=== PATIENT | female | born 1985 | race Caucasian/White ===

== ENCOUNTER 2023-05-24 13:46 | Emergency (ER) | payer BC, SELFPAY ==
[2023-05-24 13:57] VITALS: BP 120/84; PULSE 81; RESP 16; TEMP 36.8; O2SAT 99; BMI 28.8
[2023-05-24 14:39] LABS: Appearance Urine Clear (Clear); Bilirubin Urine Negative (Negative); Blood Urine Negative (Negative); Color Urine Yellow (Yellow); Glucose Urine Negative (Negative); Ketones Urine Negative (Negative); Leukocyte Esterase Urine Negative (Negative); Nitrite Urine Negative (Negative); Protein Urine Negative (Negative); Specific Gravity Urine <= 1.005 (1.000-1.030); Urobilinogen Urine 0.2 (0.2-1.0)
[2023-05-24 14:55] LABS: RBC Urine 0-2 (0-2); WBC Urine 0-2 (0-5)
--- NOTE | 2023-05-24 15:20 | ED.NURSE ---
Red rubber cath placed per provider orders to empty bladder. Catheter placed under sterile fashion. 1450 mL of clear, yellow urine drained from bladder. Pt tolerated procedure well. She reports relief of fullness and pain post-procedure. Dr. Miller notified.
--- NOTE | 2023-05-24 15:25 | ED.FEMALEGU ---
HPI - Female Genitourinary General Date Seen: 05/24/23 Chief complaint: Urogenital Problems, Female Stated complaint: 14 weeks , difficulty urinating Time Seen by Provider: 05/24/23 13:49 Source: patient Mode of arrival: ambulatory Limitations: no limitations History of Present Illness HPI Narrative: Patient is a 37-year-old female presenting to the emergency department for urinary tension. She states for the past couple weeks she is having intermittent issues with the urinary retention over the past 2 weeks. She last voided normally yesterday. Today she has only had a few small dribbles has having large amount of suprapubic pain due to this. Had a normal bowel movement today. She states she has been drinking plenty of water. A 2nd and she did not have the symptoms and her previous 1. No other concerns at this time. Denies chest pain, shortness of breath, fevers, chills, dysuria. Related Data Home Medications Medication Instructions Recorded Confirmed No Known Home Medications 05/24/23 05/24/23 Allergies Allergy/AdvReac Type Severity Reaction Status Date / Time No Known Drug Allergies Allergy Verified 05/24/23 14:00 Review of Systems Status of ROS: Reports: 10 or more systems reviewed and unremarkable except as noted in History and below PFSH PFS Social History Smoking Status: Never smoker Do you use any of these nicotine containing products: None Second hand tobacco smoke exposure: No How often do you have a drink containing alcohol: never How often do you have six or more drinks on one occasion: Never AUDIT-C Alcohol total score: 0 Non-prescribed substance use: denies use service: No Exam Narrative: Exam Narrative: Const: Well-nourished, Well-developed, in mild distress Eyes: PERRL, no conjunctival injection, and symmetrical lids HENT: Atraumatic external nose and ears. Moist mucous membranes. GI: Normal suprapubic tenderness. Nondistended, No rebound or guarding. MSK:Extremities w/o deformity, Normal Active ROM Skin: Warm, Dry. No rashes or lesions. Neuro: Normal Muscle tone, No focal neurological deficits. Psych: Awake, Alert, & Oriented x3. Appropriate mood and affect. Const: Vital Signs, click to edit/add: Vital Signs - 24 hr 11/10/23 13:57 Temperature 98.3 F Pulse Rate [Pulse Oximeter] 81 Respiratory Rate 16 Blood Pressure [Ri ght Upper Arm] 120/84 Pulse Oximetry 99 Oxygen Delivery Me thod Room Air Course Vital Signs Vital signs: Initial Vital Signs Temperature 98.3 F 05/24/23 13:57 Temperature Source Temporal Artery Scan 05/24/23 13:57 Pulse Rate 81 05/24/23 13:57 Pulse Rhythm Regular 05/24/23 13:57 Pulse Strength 3+ Normal 05/24/23 13:57 Respiratory Rate 16 05/24/23 13:57 Blood Pressure 120/84 05/24/23 13:57 Blood Pressure Mean 96 05/24/23 13:57 Blood Pressure Position Semi-Fowlers 05/24/23 13:57 Pulse Oximetry 99 05/24/23 13:57 Oxygen Delivery Method Room Air 05/24/23 13:57 Vital Signs Temperature 98.3 F 05/24/23 13:57 Pulse Rate 81 05/24/23 13:57 Respiratory Rate 16 05/24/23 13:57 Blood Pressure 120/84 05/24/23 13:57 Pulse Oximetry 99 05/24/23 13:57 Oxygen Delivery Method Room Air 05/24/23 13:57 Temperature 98.3 F 05/24/23 13:57 Pulse Rate 81 05/24/23 13:57 Respiratory Rate 16 05/24/23 13:57 Blood Pressure 120/84 05/24/23 13:57 Pulse Oximetry 99 05/24/23 13:57 Oxygen Delivery Method Room Air 05/24/23 13:57 MDM - Female Genitourinary MDM Narrative Medical decision making narrative: Patient is a 37-year-old female presenting for urinary retention. Has never been issues with this before. She is quite tender to the suprapubic region. We did bladder scan and came back at 275 but this does not seem accurate similar presentation. To that we will do a straight cath. We did get out 1450 mL of fluid. I spoke to OB on-call provider Dr. Rizvi, and she recommends placing a Bergman to have removed on Saturday by her primary care provider. She states that the patient continues to be unable to urinate after that she needs a pelvic exam to post back her anteverted uterus. Did not recommend any imaging at this time. I spoke to the patient about this. She states she understands and is agreeable. She does note she has mostly going to a conference on Saturday until Saturday is unsure if she will be go to the full conference . Lab Data Labs: Lab Results 05/24/23 Range/Units 14:01 Urine Color Yellow (Yellow) Urine Appearance Clear (Clear) Urine pH 6.0 (5.0-8.5) Ur Specific [place] <= 1.005 (1.000-1.030) Urine Protein Negative (Negative) Urine Glucose (UA) Negative (Negative) Urine Ketones Negative (Negative) Urine Blood Negative (Negative) Urine Nitrite Negative (Negative) Urine Bilirubin Negative (Negative) Urine Urobilinogen 0.2 (0.2-1.0) Ur Leukocyte Esterase Negative (Negative) Urine RBC 0-2 (0-2) Urine WBC 0-2 (0-5) Ur Squamous Epith Cells None (None-Few) Urine Bacteria None (None) Discharge Plan Discharge Clinical Impression: Acute urinary retention Patient Disposition: Home, Self-Care Condition: Improved Instructions: Bergman Catheter Placement and Care (ED), Acute Urinary Retention in Women (ED) Additional Instructions: Due to your urinary tension OB recommended Bergman placement. They recommended having the Bergman removed on Saturday by her primary care provider. If after is removed continued to be unable to urinate you will need a pelvic exam to have your anteverted uterus moved. If your primary cannot do this OB says they are able to do it Prescriptions: No Action No Known Home Medications Follow Up/Referrals: Aziza Sol, DO [Primary Care Provider] - Stand Alone Forms: [employer] Info Instructions
== END 2023-05-24 16:01 | disposition home or self-care (01) ==
PROVIDERS: Emergency Provider Student in an Organized Health Care Education/Training Program; PCP Family Medicine
DX: R33.9 Retention of urine, unspecified (principal)
CPT/HCPCS: 51702; 51798; 81001; 99283

== ENCOUNTER 2023-11-04 22:19 | Inpatient (IN) | payer BC, SELFPAY ==
--- OUTSIDE RECORDS SUMMARY | 2023-11-04 21:19 | XMS_ITS | Referral Summary ---
Author Name Unknown Organization [facility] Address [address] [place] [id number] Care Team Providers Care Line Haul Truck Driver Name Role Phone Ebenezer Aziza Primary Care Provider [phone] Allergies No known active allergies Medications Medication Sig Dispensed Refills Start Date End Date Status Prenat w/o F-FI-Lblktrv-FA-DHA (PNV-DHA PO) Active diphenhydrAMINE (BENADRYL) 25 MG capsule Take 25 mg by mouth daily Active acetaminophen (TYLENOL) 500 MG tablet Take 1,000 mg by mouth every 6 hours as needed for mild pain Active Active Problems Problem Noted Date Diagnosed Date Spontaneous vaginal delivery 09/16/2019 Indication for care in labor or delivery 020 Labor and delivery, indication for care 09/07/19 20 Family history of colon cancer 03/12/2019 Family history of cystic fibrosis 02/05/2019 Last Assessment & Plan: 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 Innatal: Negative 04/2017 annual exam nl pap FLU: 04/13/19 DO NOT tell gender 1 Hr GCT/Hgb: Passed 117, 11.2 Last Assessment & Plan: is Ganga Wallace Immunizations Name Administration Dates Next Due Flu, Unspecified 06/14/2010 HPV Quadrivalent 06/14/2010 Influenza (IIV3) PF 06/14/2010 Influenza Vaccine >6 months,quad, PF 04/13/2019, 07/17/2018 Influenza, Whole Virus 04/25/2017 TDAP Vaccine (Adacel) 06/22/2019 TDAP Vaccine (Boostrix) 06/14/2010 Social History Tobacco Use Types Packs/Day Years Used Date Smoking Tobacco: Never Smokeless Tobacco: Never Tobacco Cessation:Counseling Given: No Alcohol Use Standard Drinks/Week Comments Not Currently 0 (1 standard drink = 0.6 oz pur e alcohol) social PHQ-2 Answer Date Recorded PHQ-2 Score 1 11/06/2019 [place] Depression Scale Answer Date Recorded [place] Depression Score 3 09/17/2019 Last EPDS Self Harm Result Not on file 09/16 Adolescent Education Answer Date Record ed Getting School Help Needed Not on file 04/05 Sex and Gender Information Value Date Recorded Sex Assigned at Not on file Gender Identity Not on file Sexual Orientation Not on file Last Filed Vital Signs Vital Sign Reading Time Taken Comments Blood Pressure 110/70 07/02/2021 10:54 AM ACUPUNCTURE PHYSICIAN Pulse 70 07/02/2021 10:54 AM ACUPUNCTURE PHYSICIAN Temperature 37.4 ??C (99.3 ??F) 07/02/2021 10:[address] Respiratory Rate 16 07/02/2021 10:54 AM ACUPUNCTURE PHYSICIAN Oxygen Saturation 97% 07/02/2021 10:54 AM ACUPUNCTURE PHYSICIAN Inhaled Oxygen Concentration - - Weight 90.8 kg (200 lb 1.6 oz) 07/02/2021 10:54 AM ACUPUNCTURE PHYSICIAN Height 175.3 cm (5' 9) 12/26/2020 7:44 AM CDT Body Mass Index 29.55 12/26/2020 7:44 AM CDT Plan of Treatment Not on file Procedures Procedure Name Priority Date/Time Associated Diagnosis Comments COLONOSCOPY Routine 12/26/2020 8:06 AM CDT HIV ANTIGEN ANTIBODY COMBO Routine 02/05/2019 9:25 AM CDT Encounter for supervision of normal first in first trimester HPV HIGH RISK TYPES DNA CERVICAL Routine 04/29/2017 10:04 AM CDT Encounter for gynecological examination without abnormal finding PAP IMAGED THIN LAYER SCREEN Routine 04/29/2017 9:46 AM CDT Encounter for gynecological examination without abnormal finding from Last 3 Months or Most Recently Relevant to Health Maintenance Results * COLONOSCOPY (12/26/2020 8:06 AM CDT) [facility] Endoscopy Department Patient Name: Cindy Esparza ? Procedure Date: 12/26/2020 8:06 AM ? Date of : 1985 ?Admit Type: Outpatient Age: 35 ? Room: 2 Note Status: Finalized ?Attending MD: Jemima Fisher MD Total Sedation Time: ?Instrument Name: 411 [id number] Colonoscope Procedure: ?Colonoscopy Indications: ?Screening for colon cancer: Family history of ?colorectal cancer in distant relative(s) 60 or ?older, Colon cancer screening in patient at ?increased risk: Family history of 1st-degree ?relative with colon polyps Providers: ?Jemima Fisher MD, Mariam Arizmendi RN Referring : ? Aziza Sol [facility]: ?Fentanyl 150 micrograms IV, Midazolam 4 mg IV Complications: ?No immediate complications. Estimated blood loss: ?None. Procedure: ?Pre-Anesthesia Assessment: ?- Prior to the procedure, a History and Physical ?was performed, and patient medications and ?allergies were reviewed. The patient is competent. ?The risks and benefits of the procedure and the ?sedation options and risks were discussed with the ?patient. All questions were answered and informed ?consent was obtained. Patient identification and ?proposed procedure were verified by the physician ?in the procedure room. Mental Status Examination: ?alert and oriented. Airway Examination: normal ?oropharyngeal airway and neck mobility. Respiratory ?Examination: clear to auscultation. CV Examination: ?normal. ASA Grade Assessment: I - A normal, healthy ?patient. After reviewing the risks and benefits, ?the patient was deemed in satisfactory condition to ?undergo the procedure. The anesthesia plan was to ?use moderate sedation / analgesia (conscious ?sedation). Immediately prior to administration of ?medications, the patient was re-assessed for ?adequacy to receive sedatives. The heart rate, ?respiratory rate, oxygen saturations, blood ?pressure, adequacy of pulmonary ventilation, and ?response to care were monitored throughout the ?procedure. The physical status of the patient was ?re-assessed after the procedure. ?After obtaining informed consent, the colonoscope ?was passed under direct vision. Throughout the ?procedure, the patient's blood pressure, pulse, and ?oxygen saturations were monitored continuously. The ?Colonoscope was introduced through the anus and ?advanced to the cecum, identified by appendiceal ?orifice and ileocecal valve. The terminal ileum, ?the ileocecal valve and the appendiceal orifice ?were photographed. The entire colon was well ?visualized. The colonoscopy was performed with ?ease. The patient tolerated the procedure well. The ?quality of the bowel preparation was excellent. ? Findings: ? The perianal and digital rectal examinations were normal. ? The entire examined colon appeared normal. ? Impression: ? - The entire examined colon is normal. ?- No specimens collected. Recommendation: ? - Discharge patient to home (ambulatory). ?- Repeat colonoscopy in 10 years for screening ?purposes. ? Procedure Code(s): ? --- Professional --- ? 45204, Colonoscopy, flexible; diagnostic, including collection of ? specimen(s) by brushing or washing, when performed (separate procedure) Diagnosis Code(s): ? --- Professional --- ? Z12.11, Encounter for screening for malignant neoplasm of colon ? Z80.0, Family history of malignant neoplasm of digestive organs ? Z83.71, Family history of colonic polyps CPT copyright 2019 [employer]. All rights reserved. The codes documented in this report are preliminary and upon copy director review may be revised to meet current compliance requirements. Jemima Fisher MD 12/26/2020 8:39:32 AM I was physically present for the entire viewing portion of the exam. Jemima Fisher MD Number of Addenda: 0 Note Initiated On: 12/26/2020 8:06 AM MRN: ?[id number] Procedure Date: ? 12/26/2020 8:06:53 AM Scope Withdrawal Time: 0 hours 8 minutes 21 seconds Total Procedure Duration: 0 hours 16 minutes 27 seconds Estimated Blood Loss: ? Scope In: 8:18:57 AM Scope Out: 8:35:24 AM RADIOLOGY RESULTS 12/26/2020 8:06 AM CDT Aziza Sol PROCEDURES RADIOLOGY RESULTS * HIV Antigen Antibody Combo (02/05/2019 9:25 AM CDT) HIV Antigen Antibody Combo Nonreactive NR^Nonrea ctive 02/06/2019 9:52 AM CDT [facility] Comment:HIV-1 p24 Ag & HIV-1 /HIV-2 Ab Not Detected Blood specimen (specimen) 02/05/2019 9:25 AM CDT 02/05/2019 9:26 AM CDT Marie Navarro MD LAB - BLOO D ORDERABLES [facility] [address] [place] [address] * HPV High Risk Types DNA Cervical (04/29/2017 10:04 AM CDT) HPV 16 DNA Negative NEG^Nega tive 05/06/2017 3:33 PM CDT [facility] HPV 18 DNA Negative NEG^Nega tive 05/06/2017 3:33 PM CDT [facility] Other HR HPV Negative NEG^Nega tive 05/06/2017 3:33 PM CDT [facility] Final Diagnosis This patient's sample is negative for HPV DNA. 05/06/2017 3:33 PM CDT [facility] Comment: (Note) METHODOLOGY: ??The Rocio woody 4800 system uses automated extraction, simultaneous amplification of HPV (L1 region) and beta-globin, ?? followed by ??real time detection of fluorescent labeled HPV and beta globin using specific oligonucleotide probes . The test specifically identifies types HPV 16 DNA and HPV 18 DNA while concurrently detecting the rest of the high risk types (31, 33, 35, 39, 45, 51, 52, 56, 58, 59, 66 or 68). COMMENTS: ??This test is not intended for use as a screening device for women under age 30 with normal cervical cytology. ??Results should be correlated with cytologic and histologic findings. Close clinical followup is recommended. This test was developed and its performance characteristics determined by the [facility], [facility]. It has not been cleared or approved by the FDA. The laboratory is regulated under CLIA as qualified to perform high-complexity testing. This test is used for clinical purposes. It should not be regarded as investigational or for research. Specimen Description Cervical Cells 05/03/2017 9:10 AM CDT [facility] Comment:[id number] Cervical Cells 04/29/2017 10 :04 AM CDT 04/29/2017 10:06 AM CDT Marie Navarro MD LAB - BLOO D ORDERABLES [facility] [address] [place] [address] * Pap imaged thin layer screen with HPV - recommended age 30 - 65 (04/29/2017 9:46 AM CDT) PAP FILOMENA Acuña Report Patient Name: CINDY ESPARZA MR#: [id number] Specimen #: [id number] Collected: 04/29/2017 Received: 04/29/2017 Reported: 05/02/2017 08:42 Ordering Phy(s): MARIE NAVARRO For improved result formatting, select 'View Enhanced Report Format' under Linked Documents section. SPECIMEN/STAIN PROCESS: Pap imaged thin layer prep screening (Surepath, FocalPoint with guided screening) ? Pap-Cyto x 1, HPV ordered x 1 SOURCE: Cervical, endocervical Pap imaged thin layer prep screening (Surepath, FocalPoint with guided screening) SPECIMEN ADEQUACY: Satisfactory for evaluation. -Transformation zone component absent. CYTOLOGIC INTERPRETATION: Negative for intraepithelial lesion or malignancy Electronically signed out by: ROBERT Bowen ??(ASCP) Processed and screened at [facility] CLINICAL HISTORY: Papanicolaou Test Limitations: ??Cervical cytology is a screening test with limited sensitivity; regular screening is critical for cancer prevention; Pap tests are primarily effective for the diagnosis/preventi on of squamous cell carcinoma, not adenocarcinomas or other cancers. TESTING LAB LOCATION: [address] ??[id number] COLLECTION SITE: Client: ??[facility] Location: [facility] (S) COPATH Cytologic material (specimen) 04/29/2017 9:46 AM CDT 04/29/2017 2:38 PM CDT Marie Navarro MD LAB - OPTI ME CLINICAL SPECIMEN COPATH from Last 3 Months or Most Recently Relevant to Health Maintenance Care Teams Line Haul Truck Driver Relationship Specialty Start Date End Date Aziza Sol [address] [place] [address] PCP - General 10/20/20
--- OUTSIDE RECORDS SUMMARY | 2023-11-04 21:19 | XMS_ITS | Clinical Summary ---
Author Name Unknown Organization [facility] Address [address] [place] [address] Care Team Providers Care Letterset Press Set Up Operator Name Role Phone Ebenezer Aziza Primary Care Provider [phone] Allergies No known active allergies Medications Medication Sig Dispensed Refills Start Date End Date Status Prenat w/o L-VI-Ykjkmfd-FA-DHA (PNV-DHA PO) Active diphenhydrAMINE (BENADRYL) 25 MG [...] ) in primigravida 02/05/2019 11/06/2019 Overview: FOB: Ganga-cystic fibrosis carrier [ ] Colonoscopy 2/2eye exam. [...] Vaccine (Adacel) 06/22/2019 TDAP Vaccine (Boostrix) 06/14/2010 Family History Medical History Relation Comments Colon Cancer Maternal Grandmother Liver Cancer Maternal Grandmother Skin Cancer Maternal Grandmother Lived until her 90s Breast Cancer Mother Precancerous les ion of the breast Relation Status Comments Father Alive Maternal Grandmother Mother Alive Social History Tobacco Use Types Packs/Day Years Used Date Smoking Tobacco: Never Smokeless Tobacco: Never Tobacco Cessation:Counseling Given: No Alcohol Use Standard Drinks/Week Comments Not Currently 0 (1 standard drink = 0.6 oz pur e alcohol) social PHQ-2 Answer Date Recorded PHQ-2 Score 1 11/06/2019 [place] Depression Scale Answer Date Recorded [place] Depression Score 3 09/17/2019 Last EPDS Self [...] Comments Blood Pressure 110/70 07/02/2021 10:54 AM TIP PRINTER Pulse 70 07/02/2021 10:54 AM TIP PRINTER Temperature 37.4 ??C (99.3 ??F) 07/02/2021 10:[address] Respiratory Rate 16 07/02/2021 10:54 AM TIP PRINTER Oxygen Saturation 97% 07/02/2021 10:54 AM TIP PRINTER Inhaled Oxygen Concentration - - Weight 90.8 kg (200 lb 1.6 oz) 07/02/2021 10:54 AM TIP PRINTER Height 175.3 cm (5' 9) 12/26/2020 7:44 AM CDT Body Mass Index 29.55 12/26/2020 7:44 AM CDT Plan of Treatment Health Maintenance Due Date Last Done Comments ADVANCE CARE PLANNING 1985 ANNUAL REVIEW OF HM ORDERS 1985 CT COLONOGRAPHY 1985 FIT 1985 FLEX SIG 1985 GLUCOSE 1985 sDNA (Cologuard) 1985 HEPATITIS C SCREENING 12/23/2003 HEPATITIS B IMMUNIZATION (1 of 3 - 19+ 3-dose series) 2004 HPV IMMUNIZATION (2 - 3-dose series) 07/12/2010 06/14/2010 HPV TEST 04/29/2020 04/29/2017, 04/14, 06/17/2014 PAP 04/29/2020 04/29/2017, 06/17/2014 YEARLY PREVENTIVE VISIT 11/09/2021 11/10/19 21, 11/09/2020, 04/29/2017 COVID-19 Vaccine ( season) 2023 05/17/2021, 11/10/2020, 10/20/2020 INFLUENZA VACCINE (#1) 2023 , 04/13/2019, 07/17/2018, Additional history exists PHQ-2 (once per calendar year) 2023 11/06/2019, 11/06/2019, 02/05/2019, Additional history exists DTAP/TDAP/TD IMMUNIZATION (3 - Td or Tdap) 06/22/2029 06/22/2019, 06/14/2010 COLONOSCOPY 12/26/2030 12/26/2020, 12/26/2020 COLORECTAL CANCER SCREENING 12/26/2030 HIV SCREENING Completed 02/05/2019 IPV IMMUNIZATION Aged Out No longer e ligible based on patient's age to complete this topic MENINGITIS IMMUNIZATION Aged Out No l onger eligible based on patient's age to complete this topic Pneumococcal Vaccine: Pediatrics (0 to 5 Years) and At-Risk Patients (6 to 64 Years) Aged Out No longer eligible based on patient's age to complete this topic RSV MONOCLONAL ANTIBODY Aged Out No l onger eligible based on patient's age to complete this topic Procedures Procedure Name Priority Date/Time Associated Diagnosis [...] Results * COLONOSCOPY (12/26/2020 8:06 AM CDT) [facility] COLONOSCOPY [facility] Endoscopy Department Patient Name: Cindy Esparza ? [...] Arizmendi RN Referring : ? Aziza Sol Medicines: ?Fentanyl 150 micrograms IV, Midazolam 4 mg [...] Procedure Code(s): ? --- Professional --- ? 00632, Colonoscopy, flexible; diagnostic, including collection of ? specimen(s) by brushing or washing, when performed (separate procedure) Diagnosis Code(s): ? --- Professional --- ? Z12.11, Encounter for screening for malignant neoplasm of colon ? Z80.0, Family history of malignant neoplasm of digestive organs ? Z83.71, Family history of colonic polyps CPT copyright 2019 [employer]. All rights reserved. The codes documented in this report are preliminary and upon small wind energy installer review may be revised to meet current compliance requirements. Jemima Fisher MD 12/26/2020 8:39:32 AM I was physically present for the entire viewing portion of the exam. Jemima Fisher MD Number of Addenda: 0 Note Initiated On: 12/26/2020 8:06 AM MRN: ?[id number] Procedure Date: ? 12/26/2020 8:06:53 AM Scope [...] Nonreactive NR^Nonrea ctive 02/06/2019 9:52 AM CDT [facility] Comment:HIV-1 p24 Ag & HIV-1 /HIV-2 Ab Not Detected Blood specimen (specimen) 02/05/2019 9:25 AM CDT 02/05/2019 9:26 AM CDT Marie Navarro MD LAB - BLOO D ORDERABLES [facility] [address] [place] [address] * HPV High Risk Types DNA Cervical (04/29/2017 10:04 AM CDT) HPV 16 DNA Negative NEG^Nega tive 05/06/2017 3:33 PM CDT [facility] HPV 18 DNA Negative NEG^Nega tive 05/06/2017 3:33 PM CDT [facility] Other HR HPV Negative NEG^Nega tive 05/06/2017 3:33 PM CDT [facility] Final Diagnosis This patient's sample is negative for HPV DNA. 05/06/2017 3:33 PM CDT [facility] Comment: (Note) METHODOLOGY: ??The Rocio [address]y [address] [...] and its performance characteristics determined by the [facility], Molecular Diagnostics Laboratory. It has not been cleared or approved by the FDA. The laboratory is regulated under CLIA as qualified to perform high-complexity testing. This test is used for clinical purposes. It should not be regarded as investigational or for research. Specimen Description Cervical Cells 05/03/2017 9:10 AM CDT [facility] Comment:[id number] Cervical Cells 04/29/2017 10 :04 AM CDT 04/29/2017 10:06 AM CDT Marie Navarro MD LAB - BLOO D ORDERABLES [facility] [address] [place] [address] * Pap imaged thin layer screen with HPV - recommended age 30 - 65 (04/29/2017 9:46 AM CDT) PAP FILOMENA Acuña Report Patient Name: CINDY ESPARZA MR#: [id number] Specimen #: [id number] Collected: 04/29/2017 Received: 04/29/2017 Reported: 05/02/2017 08:42 [...] ROBERT Bowen ??(ASCP) Processed and screened at [facility] CLINICAL HISTORY: Papanicolaou Test Limitations: ??Cervical cytology is a screening test with limited sensitivity; regular screening is critical for cancer prevention; Pap tests are primarily effective for the diagnosis/preventi on of squamous cell carcinoma, not adenocarcinomas or other cancers. TESTING LAB LOCATION: [address] [place], [place] ??[address] COLLECTION SITE: Client: ??[facility] Location: [facility] (S) COPATH Cytologic material (specimen) 04/29/2017 9:46 AM CDT 04/29/2017 2:38 PM CDT Marie Navarro MD LAB - OPTI ME CLINICAL SPECIMEN COPATH from Last 3 Months or Most Recently Relevant to Health Maintenance Care Teams Letterset Press Set Up Operator Relationship Specialty Start Date End Date Aziza Sol [address] [place] [address] PCP - General 10/20/20
--- OUTSIDE RECORDS SUMMARY | 2023-11-04 21:20 | XMS_ITS | Encounter Summary ---
Author Name Unknown Organization [facility] Address [address] [place] [address] Care Team Providers Care Cell Pourer Name Role Phone No Ref-Primary, Physician Primary Care Provider June Navarro MD Unavailable + Aziza Sol Primary Care Provider [phone] Encounter Details Date Type Department Care Team (Late st Contact Info) Description 08/11/2019 [facility] [place] [facility] [address] [address] Ange Horowitz, RN Social History Tobacco Use Types Packs/Day Years Used Date Smoking Tobacco: Never Smokeless Tobacco: Never Alcohol Use Standard Drinks/Week Comments Not Currently 0 (1 standard drink = 0.6 oz pur e alcohol) Not while Comments Yes Sex and Gender Information Value Date Recorded Sex Assigned at Not on file Gender Identity Not on file Sexual Orientation Not on file documented as of this encounter Plan of Treatment Not on file documented as of this encounter Visit Diagnoses Not on filedocumented in this encounter Additional Health Concerns Infection Onset Date Last Indicated Resolved Time Rule Out COVID-19 07/02/2021 07/02/2021 07/02/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
--- OUTSIDE RECORDS SUMMARY | 2023-11-04 21:20 | XMS_ITS | Encounter Summary ---
Author Name Unknown Organization [facility] Address [address] [place] [address] Care Team Providers Care Home Manager Name Role Phone No Ref-Primary, Physician Primary Care Provider June Navarro MD Unavailable + Aziza Sol Primary Care Provider [phone] Reason for Visit * Reason Onset Date Comments Forms 11/25/2019 Encounter Details Date Type Department Care Team (Late st Contact Info) Description 11/25/2019 [facility] Medical Advice [facility] [address] [place] [address] June Navarro MD [address] [facility] [address] [place], [place] [id number] Forms Social History Tobacco Use Types Packs/Day Years Used Date Smoking Tobacco: Never Smokeless Tobacco: Never Alcohol Use Standard Drinks/Week Comments Not Currently 0 (1 standard drink = 0.6 oz pur e alcohol) Not while PHQ-2 Answer Date Recorded PHQ-2 Score 1 11/06/2019 [place] Depression Scale Answer Date Recorded [place] Depression Score 3 09/17/2019 Last EPDS Self Harm Result Not on file 09/16 Sex and Gender Information Value Date Recorded Sex Assigned at Not on file Gender Identity Not on file Sexual Orientation Not on file documented as of this encounter Miscellaneous Notes * Telephone Encounter - Kortney Levy RN - 11/25/2019 1:43 PM CDT Type of Paperwork received: Fitness for Duty Status & Certification Form Date Rcvd: 11/25/2019 Needs RAFI Rcvd From (Company name): [facility] Provider: Dr. 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
--- OUTSIDE RECORDS SUMMARY | 2023-11-04 21:20 | XMS_ITS | Encounter Summary ---
Author Name Unknown Organization [facility] Address [address] [place] [address] Care Team Providers Care Chief Minister Name Role Phone No Ref-Primary, Physician Primary Care Provider June Navarro MD Unavailable + Aziza Sol Primary Care Provider [phone] Reason for Visit * Reason Onset Date Comments MyChart Communication 11/05/2019 Encounter Details Date Type Department Care Team (Latest Contact Info) Description 11/05/2019 My[facility] Medical Advice [facility] [address] [id number] Yvonne Arango CMA MyChart Communication Social History Tobacco Use Types Packs/Day Years Used Date Smoking Tobacco: Never Smokeless Tobacco: Never Alcohol Use Standard Drinks/Week Comments Not Currently 0 (1 standard drink = 0.6 oz pur e alcohol) Not while PHQ-2 Answer Date Recorded PHQ-2 Score 1 11/06/2019 Trail Depression Scale Answer Date Recorded Trail Depression Score 3 09/17/2019 Last EPDS Self [...] Out COVID-19 07/02/2021 07/02/2021 07/02/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
--- OUTSIDE RECORDS SUMMARY | 2023-11-04 21:20 | XMS_ITS | Encounter Summary ---
Author Name Unknown Organization [facility] Address [address] [place] [address] Care Team Providers Care Harnessmaker Name Role Phone June Navarro MD Unavailable + Aziza Sol Primary Care Provider [phone] Encounter Details Date Type Department Care Team (Late st Contact Info) Description [facility] [address] [place] [id number] Social History Tobacco Use Types Packs/Day Years Used Date Smoking Tobacco: Never Smokeless Tobacco: Never Alcohol Use Standard Drinks/Week Comments Not Currently 0 (1 standard drink = 0.6 oz pur e alcohol) Not while PHQ-2 Answer Date Recorded PHQ-2 Score 1 11/06/2019 [place] Depression Scale Answer Date Recorded [place] Depression Score 3 09/17/2019 Last EPDS Self [...] Out COVID-19 07/02/2021 07/02/2021 07/02/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
--- OUTSIDE RECORDS SUMMARY | 2023-11-04 21:20 | XMS_ITS | Encounter Summary ---
Author Name Unknown Organization [facility] Address [address] [place] [address] Care Team Providers Care Soaker Hides Name Role Phone June Navarro MD Unavailable + Aziza Sol Primary Care Provider Encounter Details Date Type Department Care Team (Late st Contact Info) Description [facility] [address] [facility] [address] [facility] [address] [place] [address] Social History Tobacco Use Types Packs/Day Years Used Date Smoking Tobacco: Never Smokeless Tobacco: Never Alcohol Use Standard Drinks/Week Comments Not Currently 0 (1 standard drink = 0.6 oz pur e alcohol) Not while PHQ-2 Answer Date Recorded PHQ-2 Score 1 11/06/2019 [place] Depression Scale Answer Date Recorded [place] Depression Score 3 09/17/2019 Last EPDS Self [...] Out COVID-19 07/02/2021 07/02/2021 07/02/2021 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
--- OUTSIDE RECORDS SUMMARY | 2023-11-04 21:20 | XMS_ITS | Clinical Summary ---
Author Name Unknown Organization [facility] Address [place], [place] [address] Care Team Providers Care Porcelain Slusher Name Role Phone Aziza Sol DO Primary Care Provider [phone] Allergies No known active allergies Medications Medication Sig Dispensed Refills Start Date End Date Status 21/iron fu/folic acid ( COMPLETE ORAL) Take by mouth. Active ferrous sulfate 325 mg delayed release tabletIndications:Ane alondra during in second trimester 1 oral every other day 90 Tablet 3 08/29/2023 Active sucralfate (CARAFATE) 1 gram tabletIndications:Gas troesophageal reflux in Take 1 Tablet (1 g) by mouth four times daily before meals and at bedtime. 120 Tablet 10/24/2023 Active Active Problems Problem Noted Date Diagnosed Date Family history of cystic fibrosis 07/02/2023 AMA (advanced maternal age) multigravida 35+, second trimester 07/02/2023 [facility] Supervision of high risk in second trimester 06/25/2023 Overview: Cindy Amparo : 1985 MPP ULTRASOUND/TESTING PATIENT MPP CONSULT ON Support person name: ULTRASOUND TYPE: L2 REASON FOR VISIT: AMA ( 37yo @ del) NEXT VISIT ALERTS: Final JR by LMP LMP Date: Patient's last menstrual period was 02/19/2023 (exact date). JR:11/26/23 Early US: Date: 04/08/23 GA: 6w6d JR: 11/26/23 PrePregnancy Weight: 202 Height: 5'8 BMI: 30 PLANS & FUTURE APPOINTMENTS: ULTRASOUND/GROWTH PLAN: - Through: - Growth: Next TESTING PLAN: - Testing: Through DELIVERY PLAN: - Scheduled delivery: - Preferred delivery location: PRIMARY DIAGNOSIS: 37 y.o. Estimated Date of Delivery: 11/26/23 MATERNAL AMA (37 @ del) BMI >30 2020 Term PREVIOUS ULTRASOUNDS: 07/02/23 19w0d 04/08/23 6w6d dating US (PCP) ECHO: REFERRING PHYSICIAN/PHONE/LAST UPDATE: Aziza Sol DO, Primary MD approves scheduling of recommended ultrasounds/testing: Yes SPECIALISTS/CONSULTS: Include: Specialty MD Clinic Name Phone# [place] and ADDED TO PATIENT CARE TEAM N/A GENETICS: NIPT: AFP: First screen (NT/seq/integ): if positive add .FIRSTABNORMAL Quad screen (Tetra/Triple screen): if positive add .QUADABNORMAL Amniocentesis/CVS: IVF with PGD: Carrier screening: Declines/Not Done CARE COORDINATION: PERTINENT LABS: Labs reviewed? Yes Normal? Yes Blood type: O Rh Positive Antibody screen: Negative Non-[facility] labs need to be entered in [employer]? No PERTINENT MEDS: PROCEDURES: IF FGR <10% or EFW <2000 grams: Add FGRPCOM PLAN OF CARE: Original and updated POC 04/02/2023 Overview: JR: JR at 11/25/22 by LMP c/with 6wk US Estimated Date of Delivery: 11/26/23 Patient's last menstrual period was 02/19/2023 (exact date). First delivery, fast, pushed < 30min. CALL EBENEZER on arrival +GBS was very painful with first . Makes her uncertain about this GBS- 28 wk labs: GLUCOSE,GESTATIONAL Date Value Ref Range Status 08/29/2023 106 70 - 139 mg/dL Final HEMOGLOBIN Date Value Ref Range Status 08/29/2023 11.4 (L) 12.0 - 16.0 g/dL Final TREPONEMA PALLIDUM Date Value Ref Range Status 08/29/2023 Non-Reactive Non-Reactive Final Last Tdap- 08/29/23 Last Flu vaccine- 04/02/23 OB Labs: ABORH Date Value Ref Range Status 04/02/2023 O Rh Positive Final ANTIBODY SCREEN Date Value Ref Range Status 04/02/2023 Negative Negative Final HEMOGLOBIN Date Value Ref Range Status 04/02/2023 13.3 12.0 - 16.0 g/dL Final PLATELET COUNT Date Value Ref Range Status 04/02/2023 282 140 - 440 thou/cu mm Final TREPONEMA PALLIDUM Date Value Ref Range Status 04/02/2023 Non-Reactive Non-Reactive Final RUBELLA IGG ANTIBODY Date Value Ref Range Status 04/02/2023 1.56 >=1.00 Index Final INTERPRETATION Date Value Ref Range Status 04/02/2023 Positive Final Comment: Presence of detectable IgG antibodies. A positive result generally indicates exposure to the virus or previous vaccination, but is not an indication of active infection or stage of disease. HBSAG Date Value Ref Range Status 04/02/2023 Nonreactive Nonreactive Final HEPATITIS C ANTIBODY Date Value Ref Range Status 04/02/2023 Non-Reactive Non-Reactive Final Comment: Please note, per www.CDC.gov: If a patient is known to be at high risk of HCV infection, or is symptomatic, and the physician's suspicion of HCV infection is high, HCV RNA testing is often employed and is of diagnostic value, even after an initial negative anti-HCV test result. HCV Ab Date Value Ref Range Status 11/08/2022 Non Reactive Non Reactive Final HCV Neg Interp Date Value Ref Range Status 11/08/2022 Comment Final Comment: Not infected with HCV unless early or acute infection is suspected (which may be delayed in an immunocompromised individual), or other evidence exists to indicate HCV infection. HIV Scr 4th Gen Date Value Ref Range Status 11/08/2022 Non Reactive Non Reactive Final Comment: HIV Negative HIV-1/HIV-2 antibodies and HIV-1 p24 antigen were NOT detected. There is no laboratory evidence of HIV infection. CHLAMYDIA PROBE Date Value Ref Range Status 04/02/2023 Negative Final 06/14/2010 Negative Final N GONORRHOEAE PROBE Date Value Ref Range Status 04/02/2023 Negative Final 06/14/2010 Negative Final No Known Allergies OB History Para Term AB Living 2 1 1 0 0 1 SAB IAB Ectopic Multiple Live Births 0 0 0 0 1 # Outcome Date GA Lbr Babatunde/2nd Weight Sex Delivery Anes PTL Lv 2 Current 1 Term 03/04/20 M Vag WESLEY Name: Memo Past Medical History: . Date Migraines No Significant Past Medical History Varicella without mention of complication 1987 Past Surgical History: . Laterality Date [place] UNLISTED PROCEDURE VESTIBULE MOUTH [employer] age WISDOM TEETH EXTRACTION 2004 #2 Problems (from 04/02/23 to present) No problems associated with this episode. Beverly Kelley RN ....04/02/2023 1:37 PM Pap smear for cervical cancer screening 12/14/19 Overview: 10/2022 NIL/HPV negative. Plan: Pap/HPV due 10/2027 Estimated Date of Delivery Comme nts Yes 11/26/2023 Based on last me nstrual period of 02/19/2023 (Exact Date) Encounters Date Type Department Care Team Description 11/01/2023 10:30 AM CDT Ancillary Procedure [facility] [address] [facility] [place] [address] Arrived 10/31/2023 10:00 AM CDT OB Encounter [facility] [address] [facility] [place] [address] Aziza Sol DO Care (36 wks 2 days) 10/31/2023 Travel 10/24/2023 8:45 AM CDT OB Encounter [facility] [address] [facility] [address] Aziza Sol DO Care (35 wks 2 day) 10/24/2023 Travel 10/07/2023 10:25 AM CDT OB Encounter [facility] [address] [facility] [place] [address] Aziza Sol DO Care (32 wks 6 days) 10/07/2023 Travel 09/23/2023 1:05 PM CDT Office Visit [facility] [address] [place] [address] Aziza Sol DO Cough (5 days getting worse) 09/23/2023 Travel 09/12/2023 8:45 AM BLACK LEATHER BUFFER OB Encounter [facility] [address] [place] [address] Aziza Sol DO Care (29 wks 2 days) 09/12/2023 Travel 08/29/2023 9:10 AM BLACK LEATHER BUFFER OB Encounter [facility] [address] [place] [address] Aziza Sol DO Care (27 wks 2 days) 08/29/2023 8:20 AM BLACK LEATHER BUFFER Orders Only [facility] [address] [place] [address] Lab, [facility] 08/29/2023 Orders Only [facility] [address] [place] [address] [address] Aziza Sol DO <No scans attached> 08/29/2023 Travel from Last 3 Months Immunizations Name Administration Dates Next Due COVID-19 vaccine ([employer] 30mcg/0.3mL) PF, MDV 05/17/2021,11/10/2020,10/20/2020 Human Papilloma Virus Vaccine 06/14/2010 Influenza, IIV3 (Age >=3 years) 06/14/2010 Influenza, IIV4 04/02/2023,04/26/2021,06/30/2020 Influenza,CCIIV4 PRESERV FREE 04/23/2022 Tdap 08/29/2023,06/22/2019,06/14/2010 Family History Medical History Relation Name Comments Good Health Father Cancer Maternal Grandmother Liver Cancer-colon Maternal Grandmother Cancer-breast Mother Lumpectomy for precancerous cells from breast Good Health Mother Relation Name Status Comments Father Maternal Grandmother Mother Social History Tobacco Use Types Packs/Day Years Used Date Smoking Tobacco: Never Smokeless Tobacco: Never Tobacco Cessation:Counseling Given: Yes Alcohol Use Standard Drinks/Week Comments Not Currently 0 (1 standard drink = 0.6 oz pur e alcohol) PHQ-2 Answer Date Recorded PHQ-2 TOTAL SCORE 1 11/08/2022 Social Connections Answer Date Recorded Frequency of Communication with Friends and Fami ly 0 04/02/2023 Alcohol Use Answer Date Recorded How often do you have a drink containing alcohol ? 4 11/08/2022 How many drinks containing a lcohol do you have on a typical day when you are drinking? 0 11/08/2022 How often do you have five or more drinks on one occasion? 1 11/08/2022 Financial Resource Strain Answer Date R ecorded Difficulty of Paying Living Expenses 3 04/02/2023 Difficulty of Paying Living Expenses Not on file 04/02/2023 Food Insecurity Answer Date Recorded Worried About Running Out of Food in the Last Ye ar 1 04/02/2023 Transportation Needs Answer Date Record ed Lack of Transportation (Medical) 1 04/02/2023 Housing Stability Answer Date Recorded Unable to Pay for Housing in the Last Year 1 04/02/2023 Estimated Date of Delivery Comme nts Yes 11/26/2023 Based on last me nstrual period of 02/19/2023 (Exact Date) Sex and Gender Information Value Date Recorded Sex Assigned at Not on file Gender Identity Not on file Sexual Orientation Not on file Travel History Travel Start Travel End [place] 10/10/2023 10/14/2023 Obstetrics History Para Term AB IAB SAB Ectopic Multiple Livin g Live Births 2 1 1 0 0 0 0 0 0 1 1 Date Outcome GA Total Labor Labor/2nd/3rd Weight Sex Delivery Anes PTL Wesley A1 A5 Name Cl in 09/15 Term 3.18 kg (7 lb) M Vag Fatmata ng Sawye r Comments:Pushed <30min per pt Current Summary Episode Dates Number of Fetuses Estimated Date of Delivery 04/02/2023 - Present (11/04/2023) 1 11/26/2023 (set by Lupe Patricio on 04/10/2023 based on Last Menstrual Period on 02/19/2023 (Exact Date)) Dating Summary Based On JR GA Diff Last Menstrual Period on 02/19/2023 (Exact Date) 11/26/2023 Working Ultrasound on 04/08/2023 11/26/2023 Same GA:6w6d Alternate JR Entry 11/26/2023 Same Vitals Pregravid Weight Height TWG (As of 11/04/2023) Pregrav id BMI 88.5 kg (195 lb) 1.753 m (5' 9) 3.63 kg (8 lb) 28.78 Date GA Fund Present FHR Mvmt BP Weight Edema Alb Glu Ket Dil/ Eff/Sta 3 19w0d Inpatient data not displayed here. See encounter summary. Notes Progress Notes - OB Encounte r - 10/31/2023 - GA:36w2d 10/31/2023 - 36w2d - Aziza Sol DO Patient is here at 36 2/7 weeks for routine visit with her Mc. No concerns. +FM No abdominal pain/contractions/vaginal bleeding. Little headache last night, resolved on own. No headache now. No vision changes. AMA: again reviewed options and pros/cons testing and option induction 39+ weeks. She has US tomorrow. Declines testing. Kick counts reviewed. Is interested in induction and this was scheduled for SatNovember 19 at 6am GBS today Typical remaining course reviewed. Warning signs/labor signs reviewed. Followup in 1weeks, sooner if needed Progress Notes - OB Encounte r - 10/24/2023 - GA:35w2d 10/24/2023 - 35w2d - Aziza Sol DO Patient feeling well at 35 2/7. No concerns. Has ?'s. Decreased appetite--certain foods not sound good. Can get reflux. Taking tums. Did not gain much weight with first she says. Gained < 5pounds. Having intermittent discharge. Not watery. Can be white or green--not everyday. No odor. No itching. Amniosure negative today. DUNG pending Has noticed pubic symphysis diastasis discomfort. Discussed. No abdominal pain/contractions/vaginal bleeding. No headaches or vision changes. Typical remaining course reviewed. Discussed AMA and MPP guidelines vs UTD guidelines regarding testing/induction. Risks vs benefits reviewed. See patient instructions. Warning signs/labor signs reviewed. Followup in 1week with GBS, sooner if needed Patient Instructions Due to your age (35-39) there are some increased risks of complications towards the end of . Most women in your age group go on to have healthy pregnancies but there are some increased risks. The risk significantly increase at age 40 and above. Different organizations give different guidelines for your age group. The big perinatology group in the [facility] does not recommend any testing in the third trimester in your age group. UpToDate which give physicians medical recommendations, recommends ultrasound at 36wks to assess growth and fluid. They also recommend twice weekly testing starting at 36wks. This involves either baby milly placed on monitor in clinic for 20ish mins OR BPP US which looks at 4 factors that assess baby's health. These are both considered adequate and what we do may depend on scheduling if you decide to pursue testing. We also reviewed option induction at 39 weeks. Progress Notes - OB Encounte r - 10/07/2023 - GA:32w6d 10/07/2023 - 32w6d - Aziza Sol DO Patient feeling well 32 6/7. Left ear with cerumen occlusion. Patient flying this week and can feel. Will have CA irrigate. +FM. No abdominal pain/contractions/vaginal bleeding. No headaches or vision changes. Typical remaining course reviewed. Warning signs/labor signs reviewed. Followup in 2weeks, sooner if needed Progress Notes - OB Encounte r - 09/12/2023 - GA:29w2d 09/12/2023 - w2d - Aziza Sol DO Patient here for routine at 29 2/7. Has had cold since last visit, COVID-19 tested negative. Getting better. No concerns. +FM Mood 'better' No abdominal pain/contractions/vaginal bleeding. No headaches or vision changes. Typical remaining course reviewed. Warning signs/labor signs reviewed. Kick counts reviewed Followup in 2weeks, sooner if needed K LEATHER BUFFER Progress Notes - OB Encounte r - 08/29/2023 - GA:27w2d 08/29/2023 - 27w2d - Aziza Sol DO Patient feeling well at 27 2/7wks. No concerns. Doing GTT today. Blood type confirmed positive TdaP today +FM, kick counts reviewed Mentions moods up and down. After last saw therapist and she thought had situational obsessive-compulsive disorder, anxiety. 'ocd was more spiraling thing with the unrest' at that time in world. Not having that now. More irritability. wonders about depression in her since Barney. barney was difficult. Painful latching. Breastfed to breast 4months then exclusively pumped. Not sure about this time because last time so painful. Discussed options for mood. Therapy +/- medications +/- nonmedication treatments. Patient has started vitamin D. She wants to think about options and let me know. We did review risks vs benefits of SSRI's in . No abdominal pain/contractions/vaginal bleeding. Occasional headache. 1/2 dose tylenol makes go away. No vision changes. Typical remaining course reviewed. Warning signs/labor signs reviewed. Followup in 2weeks, sooner if needed K LEATHER BUFFER Progress Notes - OB Encounte r - 08/01/2023 - GA:23w2d 08/01/2023 - 23w2d - Aziza Sol DO Patient feeling well at 23 2/7wks. Feels tired. +FM. No abdominal pain/contractions/vaginal bleeding. No headaches or vision changes. Typical remaining course reviewed. Warning signs/labor signs reviewed. Followup in 4weeks with GTT/labs, sooner if needed K LEATHER BUFFER Progress Notes - OB Encounte r - 07/03/2023 - GA:19w1d 07/03/2023 - w - Aziza Sol DO Patient feeling well AT 19w1d. Yesterday had feeling not emptying bladder--no pain. With history urinary retention, had UA and pre/postvoid US and were both negative. Had level 2US yesterday as well for AMA. 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 Patient thinks she was tested in past and was not a carrier. Per chart, patient tested in 2019 and was not a carrier for CYSTIC FIBROSIS gene. No abdominal pain/contractions/vaginal bleeding. No headaches or vision changes. Typical remaining course reviewed. Warning signs/labor signs reviewed. Followup in 4weeks, sooner if needed K LEATHER BUFFER Progress Notes - OB Encounte r - 06/05/2023 - GA:15w1d 06/05/2023 - 15w1d - Aziza Sol DO Patient here for routine visit at 15wks. Had urinary retention--see last note. Catheter was removed and she has been voiding normally since. No nausea now. movement: maybe No abdominal pain/contractions/vaginal bleeding. No headaches or vision changes. Typical remaining course reviewed. Warning signs/labor signs reviewed. Level 2 anatomy US scheduled already Followup in 4weeks, sooner if needed K LEATHER BUFFER Progress Notes - OB Encounte r - 05/27/2023 - GA:13w6d 05/27/2023 - 13w6d - Aziza Sol DO S: Here for ER follow up. Was in ER 05/24/23 In ER had bladder emptied with straight cath. 1450 urine was removed. Then catehter placed. That then fell out at home and so had to return and get another catheter Saturday. Over weekend felt uncomfortable along urethra area so did not do much. The suprapubic 'bladder going to explode pain' resolved with catheter placement. Over weekend was 'just catheter itself painful'. Drinking lots of water. Prior to ER visit had 2 weeks or hesitancy with just dribbles and would take forever. At times would urinate okay. Then this past Saturday drinking lots of fluid and not able to void. Suprapubic pain was like 'really have to pee.' Has not been constipated. Having regular bowel movement's. Can be firm. Took colace once. She thought her mychart at hospital said she had influenza but when showing me it was old test result from 2021. She did not get nasal swab at ER this year O: see vitals Gen: pleasant female, no acute distress Abdomen: Nttp. FHT 150's A/P: at 13 6/7 weeks gestation with urinary retention in ER requiring catheter. Catheter removed today. Discussed potential causes and plan for follow up in 4 hours. All ?'s answered. Patient returned 4 hours later and had postvoid US with 4cc. This is reassuring. She will keep her apt for next week and reach out sooner if recurrent symptoms or concerns. K LEATHER BUFFER Progress Notes - OB Encounte r - 05/08/2023 - GA:11w1d 05/08/2023 - 11w - Aziza Sol DO Here for routine visit at 11wks. Was having baseline nausea but that has improved. Only vomited once. No concerns. Would like janina and CYSTIC FIBROSIS screening. Mc is carrier. Patient had CYSTIC FIBROSIS carrier testing and was negative. Offered SMA testing as well, she declined for now. No abdominal pain/contractions/vaginal bleeding. Unable to doppler FHT's but using handheld US we visualized fetus with good FHT's Typical remaining course reviewed. Warning signs/labor signs reviewed. Followup in 4weeks, sooner if needed Progress Notes - OB Encounte r - 04/10/2023 - GA:7w1d 04/10/2023 - 7w1d - Aziza Sol DO FIRST OB VISIT HPI: Cindy Christensen is a 37 y.o. female at 7w1d with lundberg intrauterine here today for a initial OB exam. She is here with self. Ganga is . Estimated due date is Estimated Date of Delivery: 11/26/23 based on LMP c/with US Nausea/Vomiting: Nausea, not vomit. Fatigue: yes Bleeding: no Taking vitamins: yes Options of sequential screen, cell-free DNA testing, amniocentesis were discussed. Patient is interested in pursuing testing. AMA: yes Previous : no MENSTRUAL HISTORY LMP:Patient's last menstrual period was 02/19/23, exact . 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 Last Pap smear October 2022 No history of STIs Patient says with first delivery had 'slow leaking' and found to have srom. Went from no ctxs to severe pain she says and got epidural, slept couple hours and was 9cm. 2 hours later had vaginal delivery. Pushed about 30min. Has hard time . Was in pandemic. Thinks in retrospect had depression. OB History Para Term AB Living 2 1 1 0 0 1 SAB IAB Ectopic Multiple Live Births 0 0 0 0 1 # Outcome Date GA Lbr Babatunde/2nd Weight Sex Delivery Anes PTL Lv 2 Current 1 Term 09/16/19 3.18 kg (7 lb) M Vag WESLEY Comments: Pushed <30min per pt Past Medical History: . Date Migraines No Significant Past Medical History Varicella without mention of complication 1987 No history MRSA or resistant infections Past Surgical History: . Laterality Date [place] UNLISTED PROCEDURE VESTIBULE MOUTH [employer] age WISDOM TEETH EXTRACTION 2004 Family History Problem Relation Age of Onset Cancer-colon Maternal Grandmother Cancer Maternal Grandmother Liver Good Health Mother Cancer-breast Mother Lumpectomy for precancerous cells from breast Good Health Father Social History Tobacco Use Smoking status: Never Smokeless tobacco: Never Substance Use Topics Alcohol use: Not Currently No current outpatient medications on file. No current facility-administered medications for this visit. Medications have been reviewed by me and are current to the best of my knowledge and ability. ALLERGIES Patient has no known allergies. MENTAL HEALTH HISTORY History of psychiatric diagnosis: None at time but in retrospect ? depression Current mental health provider: not applicable Currently taking any psychiatric medications? Not Applicable REVIEW OF SYSTEMS Comprehensive ROS complete and negative other than noted in HPI and on OB Questionnaire. PHYSICAL EXAM BP 107/71 (Cuff Site: Right Arm, Position: Sitting, Cuff Size: Adult Large) Pulse 85 Wt 88.9 kg (196 lb) LMP 02/19/2023 (Exact Date) SpO2 98% BMI 28.94 kg/m?? General: Pleasant female in no acute distress, alert and appropriate HEENT: Conjunctiva clear, nares patent, TMs normal, mucous memory is moist Neck: No lymphadenopathy or thyromegaly Heart: Regular rate and rhythm Lungs: Clear tissue bilaterally deferred Extremities: No edema Skin: No concerning lesions Psych: normal affect Ultrasound #1: 04/08/23 IMPRESSION: Single living intrauterine with sonographic gestational age 6 weeks 6 days and sonographic due date of 11/26/2023. Subchorionic hemorrhage measures 1.3 x 2.8 x 0.5 cm. JR: JR at 11/25/22 by LMP c/with 6wk US ASSESSMENT/PLAN Normal first visit. 1. Discussed orientation,general information,lifestyle,nutrition,exercise,warning signs,resources,lab testing,risk screening. Questions answered. 2. Typical remaining course reviewed. 3. Labor signs/warning signs reviewed. 4. Appropriate weight gain during and healthy eating/exercise reviewed at length. 5. Ultrasound for dating reviewed. 6. Reviewed labs. 7. discussed Janina and she will get at/after 11 wks 8. Does not meet criteria for aspirin prophylaxis 9. AMA: discussed AMA and higher risk for complications and recommendations and options for . She is interested in Janina and can get next visit. Does NOT want gender. She is also interested in level 2US and we can rereview option testing 36 weeks+ and options induction at 39-40 weeks at that time gets closer. MPP current testing guidelines do not recommend testing in 35- 39 but UTD recs 36 with growth/CHAPARRO US and biweekly testing til delivery and induction at 39-40 weeks. 10. Plans to get COVID-19 vaccine at [facility] [place]. Followup in 4 weeks, sooner if needed ASPIRIN CANDIDATE EVALUATION One or more of the following: Previous with preeclampsia, especially early onset and with and adverse outcome. Multifetal gestation Chronic hypertension Type 1 or 2 diabetes Chronic kidney disease Autoimmune disease (antiphospholipid syndrome, systemic lupus erythematosus) Two or more of the following: Nulliparity Obesity (body mass index > 30 kg/m2) Family history of preeclampsia in mother or sister Age greater than or equal to 35 years Sociodemographic characteristics (, low socioeconomic level) Personal risk factors (eg, history of low weight or small for gestational age, previous adverse outcome, > 10 year interval) Total time preparing to see this patient, [id number] time, and coordinating care time on the same calendar date: 45 minutes. Progress Notes - OB Encounte r - 04/02/2023 - GA:6w0d 04/02/2023 - 6w0d - Beverly Kelley RN Expand All Collapse All SUBJECTIVE: Cindy Christensen is a 37 y.o. female, , who presents for confirmation and ob education. Patient presents to the clinic alone. Had positive test at home. This was Planned, Desired. Patient was on contraception. 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 MENSTRUAL HISTORY: Patient's last menstrual period was 02/19/2023 (exact date).: Cycle Regularity: regular, every 30-31 days Past Medical History Past Medical History: . Date Migraines No Significant Past Medical History Varicella without mention of complication 1987 OB History Para Term AB Living 2 1 1 0 0 1 SAB IAB Ectopic Multiple Live Births 0 0 0 0 1 # Outcome Date GA Lbr Babatunde/2nd Weight Sex Delivery Anes PTL Lv 2 Current 1 Term 09/16/19 M Vag WESLEY 5P'S SUBSTANCE ABUSE SCREEN FOR ALCOHOL, DRUGS AND TOBACCO: Did any of your parents have a problem with using alcohol or drugs? No Do any of your friends (peers) have problems with drug or alcohol use? No Does your partner have a problem with drug or alcohol use? No Before you knew you were , how often did you drink beer, wine, wine coolers or liquor or use any kind of drug? 1-2 drinks most nights In the past month, how often did you drink beer, wine, wine coolers or liquor or use any kind of drug? Three times How much did you smoke, vape or use tobacco or nicotine in any form before you knew you were ? Don't Smoke, Vape or use Tobacco Genetic Screening No data filed CURRENT MEDICATIONS: Current Outpatient Medications Medication Sig metroNIDAZOLE (FLAGYL) 500 mg tablet Take 1 Tablet (500 mg) by mouth two times daily. miscellaneous medical supply (Blood Pressure Cuff) [facility] [place] for home use. No current facility-administered medications for this visit. Medications have been reviewed by me and are current to the best of my knowledge and ability. ALLERGIES: Patient has no known allergies. OBJECTIVE: Ht 1.753 m (5' 9) Wt 88.5 kg (195 lb) LMP 02/19/2023 (Exact Date) BMI 28.80 kg/m?? No results found for: PREGURINE ASSESSMENT/PLAN: ICD-10-CM 1. Encounter for supervision of other normal in first trimester Z34.81 EDUCATION/PATIENT INSTRUCTIONS - Advised patient to start/continue vitamin. - Discussed risk of using alcohol, tobacco, other drugs in . - Discussed healthy lifestyle in . - Provided copy of Beginnings book and book inserts, discussed [id number] medications, and follow up. - Encouraged patient to call clinic at [phone] with any vaginal bleeding, fluid leaking from vagina, severe abdominal pain, nausea with severe vomiting, fever higher than 100.4F, painful urination, headache not relieved by Tylenol, or other concerns - labs completed with today's visit. yes - Patient informed to schedule 1st trimester dating ultrasound between 7-10 weeks. - Initial OB appointment with FP/OB scheduled. PHQ-9, and COVID-19 vaccine discussion to be completed at this visit. Future Appointments Date Time Provider Department Center 04/10/2023 11:15 AM Aziza Sol, DO NFLD[facility] NFLD Beverly Kelley RN .................... 04/02/2023 1:05 PM Last Filed Vital Signs Vital Sign Reading Time Taken Comments Blood Pressure 116/78 10/31/2023 10:09 AM CDT Pulse 91 10/31/2023 10:09 AM CDT Temperature 36.8 ??C (98.3 ??F) 09/23/2023 1:18 PM CD T Respiratory Rate 16 01/10/2022 12:27 PM CDT Oxygen Saturation 97% 10/31/2023 10:09 AM CDT Inhaled Oxygen Concentration - - Weight 92.1 kg (203 lb) 10/31/2023 10:09 AM CDT Height 175.3 cm (5' 9) 04/02/2023 1:02 PM CDT Body Mass Index 29.98 04/02/2023 1:02 PM CDT Plan of Treatment Upcoming Encounters Date Type Department Care Team (Late st Contact Info) Description 11/07/2023 8:45 AM CDT OB Encounter [facility] [address] [place] [address] Aziza Sol DO [address] [place] [address] 11/14/2023 8:45 AM CDT OB Encounter [facility] [address] [place] [address] Aziza Sol DO [address] [place] [address] 11/21/2023 8:45 AM CDT OB Encounter [facility] [address] [facility] [address] Aziza Sol DO [address] [place] [address] 11/28/2023 8:45 AM CDT OB Encounter [facility] [address] [place] [address] Aziza Sol DO [address] [facility] [place] [address] Health Maintenance Due Date Last Done Comments Depression screening for age 12+ 11/09/2023 11/08/2022, 11/09/2020 Influenza for age 9-49 03/15/2024 3, 04/23/2022, 04/26/2021, Additional history exists BMI (ht and wt on same day) for age 18+ 04/02/2024 04/02/2023, 11/08/2022, 11/09/2020 Pap test for age 21-65 11/09/2027 , 11/08/2022, 04/29/2017 (Verified in Care Everywhere or Patient Record), Additional history exists Tetanus booster 08/29/2033 08/29/2023, 03/2019, 06/14/2010 HIV for age 15-65 Completed 04/02/2023, 11/08/2022 Hepatitis C screening for age 18-79 Completed 04/02/2023, 11/08/2022 COVID-19 vaccine series Completed 04/17/20, 04/23/2022, 05/17/2021, Additional history exists Tdap Completed 08/29/2023, 03/2019, 06/14/2010 Pneumococcal series for age 6-64 Aged Out No longer eligible based on patient's age to complete this topic Procedures Procedure Name Priority Date/Time Associated Diagnosis Comments US OB FOLLOW UP ANY TRI SINGLE TA Routine 11/01/2023 10:23 AM CDT care in third trimester Advanced maternal age in multigravida, first trimester VAGINAL/RECTAL OB STREP PCR Routine 10/31/2023 10:38 AM CDT care in third trimester TRICHOMONAS, ALEX, AND BACTERIAL VAGINOSIS BY DUNG Routine 10/24/2023 9:22 AM CDT Vaginal discharge during in third trimester AMNISURE ROM Routine 10/24/2023 9:21 AM CDT Vaginal discharge during in third trimester TREPONEMA PALLIDUM Routine 08/29/2023 9: 30 AM BLACK LEATHER BUFFER care, second trimester HEMOGLOBIN Routine 08/29/2023 9:30 AM BLACK LEATHER BUFFER care, second trimester GLUCOSE,GESTATIONAL Routine 08/29/2023 9 :30 AM BLACK LEATHER BUFFER care, second trimester ANTI HIV 1/2 Routine 04/02/2023 1:47 PM CDT Encounter for supervision of other normal in first trimester ANTI HCV Routine 04/02/2023 1:47 PM CDT Encounter for supervision of other normal in first trimester HPV THIN PREP Routine 11/08/2022 12:24 PM CDT Cervical cancer screening from Last 3 Months or Most Recently Relevant to Health Maintenance Results * US OB FOLLOW UP ANY TRI SINGLE TA (11/01/2023 10:23 AM CDT) Anatomical Region Laterality Modality , 2or 3 TRIMESTER Ultrasound 11/01/2023 3:49 PM CDT Impressions 11/01/2023 3:49 PM CDT Sonographic gestational age 36 weeks 5 days and sonographic due date of 11/24/2023. Good correlation with dates. Normal interval growth. Estimated weight 36th percentile. Abdominal circumference 22nd percentile. Dictated by Uday Atkinson MD @ 11/01/2023 3:49:16 PM (Electronically Signed) Narrative 11/01/2023 3:49 PM CDT For Patients: ??As a result of the Century Cures Act, medical imaging exams and procedure reports are released immediately into your electronic medical record. ??You may view this report before your referring provider. ??If you have questions, please contact your health care provider. INDICATION: Third trimester scan, evaluate growth. COMPARISON: 07/02/2023 TECHNIQUE: Real time davis scale imaging of the fetus was performed. FINDINGS: Sonographic imaging demonstrates a single living intrauterine gestation. ??Fetus demonstrates a regular cardiac rate of 143 beats per minute. ??Fetus has a vertex position. The placenta lies posteriorly without evidence of placenta previa. ??Amniotic fluid volume appears normal and there is a single deepest vertical pocket: 4.4 cm. The estimated weight is 2771gm which lies at the 36th %. ??On the prior OB ultrasound exam dated 07/02/2023 the estimated weight was at the 77th%. The biometric indices all lie within normal range. ??The HC/AC ratio measures 1.08 range (0.93-1.11). Procedure Note Uday Atkinson MD - 11/01/2023 For Patients: As a result of the Cures Act, medical imagingexams and procedure reports are released immediately into your electronicmedical record. You may view this report before your referring provider.If you have questions, please contact your health care provider. INDICATION: Third trimester scan, evaluate growth. COMPARISON: 07/02/2023 TECHNIQUE: Real time davis scale imaging of the fetus was performed. FINDINGS: Sonographic imaging demonstrates a single living intrauterine gestation.Fetus demonstrates a regular cardiac rate of 143 beats per minute. Fetushas a vertex position. The placenta lies posteriorly without evidence ofplacenta previa. Amniotic fluid volume appears normal and there is asingle deepest vertical pocket: 4.4 cm. The estimated weight [id number] which lies at the 36th %. On the prior OB ultrasound exam dated109/02/2022 the estimated weight was at the 77th%. The fetalbiometric indices all lie within normal range. The HC/AC ratio measures1.08 range (0.93- 1.11). IMPRESSION: Sonographic gestational age 36 weeks 5 days and sonographic due date of11/24/2023. Good correlation with dates. Normal interval growth. Estimated weight 36th percentile. Abdominal circumference 22ndpercentile. Dictated by Uday Atkinson MD @ 11/01/2023 3:49:16 PM (Electronically Signed) Aziza Sol DO US * (ABNORMAL) VAGINAL/RECTAL OB STREP PCR (10/31/2023 10:38 AM CDT) Vaginal/Rectal OB Strep B PCR Positive( A) 11/03/2023 8:28 AM CDT [facility] Comment:If susceptibility is needed due to penicillin allergy, contact lab. Other (Vaginal/Rectal) Non-Blood / Unknown 10/31/2023 10:38 AM CDT 10/31/2023 10:53 AM CDT Aziza Sol DO MICROBIOLOGY [facility] [address] [place] [address], * TRICHOMONAS, ALEX, AND BACTERIAL VAGINOSIS BY DUNG (10/24/2023 9:22 AM CDT) ALEX SPECIES Negative Negative 6:50 PM CDT [facility] ALEX GLABRATA Negative Negative 10/24/2023 6:50 PM CDT [facility] TRICHOMONAS VVA Negative Negative 6:50 PM CDT [facility] BACTERIAL VAGINOSIS Negative Negative 10/24/2023 6:50 PM CDT [facility] Other VAGINAL SWAB / Unknown Non-Blood / Unknown 10/24/2023 9:22 AM CDT 10/24/2023 9:40 AM CDT Aziza Sol DO MICROBIOLOGY Performing Organization Address City/[facility]/ZIP Co de Phone Number [facility] [address] [place] [phone], * AMNISURE ROM (10/24/2023 9:21 AM CDT) AMNISURE ROM Negative, NO MEMBRANES RUPTURE Negative, NO MEMBRANES RUPTURE 10/24/2023 9:59 AM CDT [facility] Body Fluid VAGINAL SWAB / Unknown Non-Blood / Unknown 10/24/2023 9:21 AM CDT 10/24/2023 9:40 AM CDT Aziza Sol DO LABORATORY [facility] [address] [place] [address], * TREPONEMA PALLIDUM (08/29/2023 9:30 AM BLACK LEATHER BUFFER) TREPONEMA PALLIDUM Non-Reacti ve Non-Reacti ve 08/29/2023 5:36 PM BLACK LEATHER BUFFER [facility] Blood BLOOD SPECIMEN / Unknown Venipuncture / Unknown 08/29/2023 9:30 AM BLACK LEATHER BUFFER 08/29/2023 9:33 AM BLACK LEATHER BUFFER Aziza Sol DO SEND OUTS [facility] [address] [place] [address], [place] * (ABNORMAL) HEMOGLOBIN (08/29/2023 9:30 AM BLACK LEATHER BUFFER) Pathologist [facility] HEMOGLOBIN 11.4(L) 12.0 - 16.0 g/dL 08/29/2023 9:38 AM BLACK LEATHER BUFFER [facility] MCV 91 80 - 100 fL 08/29/2023 9:38 AM BLACK LEATHER BUFFER [facility] Blood BLOOD SPECIMEN / Unknown Venipuncture / Unknown 08/29/2023 9:30 AM BLACK LEATHER BUFFER 08/29/2023 9:33 AM BLACK LEATHER BUFFER Aziza Sol DO HEMATOLOGY Performing Organization Address City/[facility]/ZIP Co de Phone Number [facility] [address] [place] [address], [place] [phone] * GLUCOSE,GESTATIONAL (08/29/2023 9:30 AM BLACK LEATHER BUFFER) Pathologist [facility] GLUCOSE,GESTAT IONAL 106 70 - 139 mg/dL 08/29/2023 9:42 AM BLACK LEATHER BUFFER [facility] Blood BLOOD SPECIMEN / Unknown Venipuncture / Unknown 08/29/2023 9:30 AM BLACK LEATHER BUFFER 08/29/2023 9:33 AM BLACK LEATHER BUFFER Aziza Sol DO CHEMISTRY Performing Organization Address City/[facility]/ZIP Co de Phone Number [facility] [address] [place] [address], [place] [phone] * ANTI HCV (04/02/2023 1:47 PM CDT) HEPATITIS C ANTIBODY Non-Reacti ve Non-React gian 04/03/2023 9:26 AM CDT [facility] Comment:Please note, per www .CDC.gov: If a patient is known to be at high risk of HCV infection, or is symptomatic, and the physician's suspicion of HCV infection is high, HCV RNA testing is often employed and is of diagnostic value, even after an initial negative anti-HCV test result. Blood BLOOD SPECIMEN / Unknown Venipuncture / Unknown 04/02/2023 1:47 PM CDT 04/02/2023 1:48 PM CDT Aziza Ann Ebenezer DO SEND OUTS [facility] SENDOUT [place]NAL ZIP [address] [address] [place] [address] * ANTI HIV 1/2 (04/02/2023 1:47 PM CDT) Pathologist [facility] HIV-1/HIV-2 SCREEN Non-Reacti ve Non-Reacti ve 04/02/2023 8:56 PM CDT [facility] Comment:HIV-1 p24 and HIV-1/ HIV-2 Ab Not Detected. Blood BLOOD SPECIMEN / Unknown Venipuncture / Unknown 04/02/2023 1:47 PM CDT 04/02/2023 1:48 PM CDT Aziza Ann Ebenezer AGUIRRE SEND OUTS [facility] [address] [place] [address], * HPV HIGH RISK (11/08/2022 12:24 PM CDT) TYPE 16 Negative Negative 11/13/2022 5:22 PM CDT [facility] TYPE 18 Negative Negative 11/13/2022 5:22 PM CDT [facility] OTHER HIGH RISK TYPES Negative Negative 11/13/2022 5:22 PM CDT [facility] Other (Cervical) Non-Blood / Unknown 11/08/2022 12:24 PM CDT 11/09/2022 2:45 PM CDT Narrative [facility] - 11/13/2022 5:22 PM CDT HPV types 16, 18, 31, 33, 35, 39, 45, 51, 52, 56, 58, 59, 66 and 68 DNA were undetectable or below the pre-set threshold. Methodology: Rocio Efra 4800 HPV Test Aziza Sol DO MICROBIOLOGY [facility] [address] [place] [address], from Last 3 Months or Most Recently Relevant to Health Maintenance Care Teams Porcelain Slusher Relationship Specialty Start Date End Date Aziza Sol DO [address] [place] [address] PCP - General Family Practice 10/09/21
[2023-11-04 21:30] VITALS: BP 147/79; PULSE 88
[2023-11-04 21:34] VITALS: RESP 17; TEMP 36.8
[2023-11-04 21:50] VITALS: BP 129/77; PULSE 93
[2023-11-04 22:04] VITALS: BP 134/83; PULSE 82
[2023-11-04 22:08] LABS: Amnisure Rom* POSITIVE
[2023-11-04 23:16] LABS: Basophils Absolute Auto 0.01 K/uL (0.00-0.30); Basophils Percent Auto 0.1 % (0.0-3.0); Eosinophils Absolute Auto 0.07 K/uL (0.00-0.50); Eosinophils Percent Auto 0.7 % (0.0-7.0); Hematocrit 35.6 % (33.0-51.0); Hemoglobin* 11.8 gm/dL (12.0-16.0); Immature Granulocytes Abs Auto 0.03 K/uL (0.00-0.30); Immature Granulocytes Pct Auto 0.3 %; Lymphocytes Percent Auto 18.4 % (20-44); Mean Corpuscular HGB Conc 33 gm/dL (32-36); Mean Corpuscular Hemoglobin 30 pg (26-34); Mean Corpuscular Volume 92 fL (80-100); Monocytes Percent Auto 6.3 % (0.0-11.0); Neutrophils Percent Auto 74.2 % (42.0-72.0); Platelet Count* 247 K/uL (140-440); RDW Coefficient of Variation % 12.8 % (11.5-15.5); Red Blood Count 3.89 m/uL (4.00-5.20); White Blood Count* 10.05 K/uL (4.50-11.00)
[2023-11-04] MEDS: AMPICILLIN 2 GM in 0.9 % SODIUM CHLORIDE Mini-bag 100 ML IVPB (23:18)
--- NOTE | 2023-11-04 23:23 | PM.OBHPLI ---
OB - H&P: HPI Labor/Induction History of Present Illness Time Seen by Provider: 23:00 Date Seen: 11/04/23 Chief Complaint: The patient is a 37 year old 2 para 1 at 36 6/7 weeks gestation by LMP c/w 6wk US, who presents with leaking fluid. Chief complaint: Maternity : 2 Para: 1 Date of last menstrual period: 02/19/23 Estimated date of delivery: 11/26/23 Gestational age based on last menstrual period: 36 Narrative: Cindy Christensen is a 37 year old 2 para 1 at 36 6/7 weeks gestation by LMP c/w 6wk US, who presented to triage with leaking of fluid. Pt first noticed making dinner around 5pm. Noticed small leaking of fluid and thought maybe watery discharge vs water breaking so changed underwear and decided to monitor. Around 7pm noticed starting have very mild 'menstrual like cramping.' Continued to do things around the house and around 9pm noted 'gush of fluid' and thought her water might be broke so called L&D. No bleeding. Cramping remains mild and 'menstrual like' she says. says hard to tell when cramping but can feel at times. No recent illness. no headaches or vision changes. History of Present Dating criteria: based on LMP care: good care Ultrasounds: normal 1st trimester US (IUP 6w6d on 11/25/22. Small ELIUD), normal mid trimester US (level 2 US) and other (US last week with appropriate growth) Medical complications: genitourinary (urinary retention 13wks, resolved with catheter placement) Labs Blood type: O (+) positive Rubella: immune RPR/VDLR: nonreactive GBS status: positive HBsAG: negative Meds Home Medications and Allergies Home Medications Medication Instructions Recorded Confirmed Type vitamin#30 30 mg iron-10 1 cap PO DAILY 11/04/23 11/04/23 History mg iron-folic acid 1 mg-omg3 capsule Allergies Allergy/AdvReac Type Severity Reaction Status Date / Time No Known Drug Allergies Allergy Verified 11/04/23 21:22 OB - H&P: Exam Physical Exam: Vital signs: Temp Pulse Resp BP 98.2 F 82 17 134/83 11/04/23 21:34 11/04/23 22:04 11/04/23 21:34 11/04/23 22:04 Constitutional: Constitutional: no acute distress and cooperative Routine HEENT Exam: Head: Present normal inspection Eye: Present normal appearance ENT: Present mucous membranes moist Routine Respiratory Exam: Respiratory: Present CTA bilaterally Routine Cardiovascular Exam: Cardiovascular: RRR Detailed Labor and Delivery Exam: Patient Gravid: Yes Fetus (Single): Amniotic Membrane Status: SROM Amniotic Membrane Fluid Description: Clear Heart Rate Baseline: 130 Monitor Accelerations: Present Monitor Decelerations: None Electrical Appliance Repairer Variability: Moderate (6-25) Routine Extremities Exam: Extremities: Absent pedal edema Routine Neurological Exam: Present alert, oriented X3 and normal speech OB - Problem Based A/P Additional Plan (1) premature rupture of membranes: Problem details: SROM 1700 on 11/04/23 Status: Acute Plan: Known GBS positive. +amniosure in triage. Discussed with RN, start abx right away due to GBS+. Will wait until abx for 4 hours and then if not in active labor, discussed with pt starting pitocin. Will hold off on checking cervix until abxs 4+ hours unless sxs active labor prior to this. Reviewed all with pt. All ?'s answered. Plan see above. Of note, initial bp elevated but next 2 coming down. will monitor bp for now.
[2023-11-04 23:37] LABS: Slide Review Reflex No
[2023-11-04 23:55] VITALS: RESP 16; TEMP 36.9
[2023-11-04 23:58] VITALS: BMI 29.5
[2023-11-05] VITALS (65 sets, daily range): BP systolic 102–133; BP diastolic 61–86; PULSE 62–110; RESP 14–18; TEMP 36.6–37.1; O2SAT 91–100
[2023-11-05] MEDS: AMPICILLIN 1 GM in 0.9 % SODIUM CHLORIDE Mini-bag 100 ML IVPB ×3 (03:20→09:09)
[2023-11-05] MEDS: LACTATED RINGERS 1000 ML 1,000 ML 200 ML IV ×2 (03:22→07:30)
[2023-11-05] MEDS: OXYTOCIN 30 unit/500 ML in NS 30 UNIT/500 ML BAG IVPB (05:45)
--- NOTE | 2023-11-05 06:42 | PM.OBPNL ---
Subjective Time Seen by Provider: 06:30 Date Seen: 11/05/23 Narrative: Pt received 4 hours abx for GBS. We had discussed starting pitocin if not clearly in labor after adequate abx on board. Cervix checked then at 0318 and was 4.5/60/-1 per RN. Per pt and RN, contractions were up and down for next few hours and unclear if contractions were progressing. Pt was hesitant to start pitocin per RN. This morning shortly before 6am, pt agreed to start pitocin as contractions continued to wax and wane without clear pattern. Pitocin started about 550am. pt reports feeling increased contractions now with pitocin, breathing through now and requests epidural. Objective Vital Signs: Last Vital Signs Temp 97.9 F 11/05/23 05:56 Pulse 82 11/05/23 04:05 Resp 14 11/05/23 05:56 BP 133/82 11/05/23 04:05 Contractions Monitor mode: External Contraction Frequency: 2-4min Contraction pattern: Regular Assessment Assessment: induction ongoing Heart Rate Baseline: 130 Hand Funnel Coater Variability: Moderate (6-25) Monitor Accelerations: Present Monitor Decelerations: None Plan Plan: pt currently 37wks today with PPROM last night around 1700. pt presented to triage 2123. Abxs started after +amnisure due to known GBS+. Pitocin started this morning. Anesthesia aware epidural requested. All pts ?'s answered.
[2023-11-05] MEDS: LIDOCAINE 2% (PF) 5 ML VIAL EPIDURAL (07:15)
[2023-11-05] MEDS: ROPIVACAINE 0.2% 100 ml 100 ML 12 MG EPIDURAL (07:31)
--- NOTE | 2023-11-05 07:31 | P.ANBPRC_ITS ---
PFSH PFS Medical History (Updated 11/04/23 @ 23:37 by Aziza Sol DO) Migraine ?G43.909 - Migraine, unspecified, not intractable, without status migrainosus (ICD-10) Surgical History (Updated 11/04/23 @ 23:34 by Aziza Sol DO) [place] teeth removed ?K08.409 - Partial loss of teeth, unspecified cause, unspecified class (ICD- 10) Social History Smoking Status: Never smoker Do you use any of these nicotine containing products: None Second hand tobacco smoke exposure: No How often do you have a drink containing alcohol: never How often do you have six or more drinks on one occasion: Never AUDIT-C Alcohol total score: 0 Non-prescribed substance use: denies use service: No Meds Home Medications and Allergies Home Medications Medication Instructions Recorded Confirmed Type vitamin#30 30 mg iron-10 1 cap PO DAILY 11/04/23 11/04/23 History mg iron-folic acid 1 mg-omg3 capsule Allergies Allergy/AdvReac Type Severity Reaction Status Date / Time No Known Drug Allergies Allergy Verified 11/04/23 21:22 Results Labs Labs: Laboratory Results - last 24 hr 11/04/23 11/04/23 21:32 23:05 WBC 10.05 RBC 3.89 L Hgb 11.8 L Hct 35.6 MCV 92 MCH 30 MCHC 33 RDW Coeff of Nichole 12.8 Plt Count 247 Neut % (Auto) 74.2 H Lymph % (Auto) 18.4 L [place] % (Auto) 6.3 Eos % (Auto) 0.7 Baso % (Auto) 0.1 Neut # (Auto) 7.50 H Lymph # (Auto) 1.80 [place] # (Auto) 0.60 Eos # (Auto) 0.07 Baso # (Auto) 0.01 Abs Immat Gran (auto) 0.03 Imm/Tot Granulo (auto) 0.3 Membrane Rupture POSITIVE Blood Type O Positive Antibody Screen NEGATIVE Vital Signs Vital Signs: Last Vital Signs Temp 97.9 F 11/05/23 05:56 Pulse 102 H 11/05/23 07:30 Resp 14 11/05/23 05:56 BP 113/70 11/05/23 07:30 Pulse Ox 98 11/05/23 07:27 Weight: 90.775 kg Height: 175.26 cm Anesthesia Procedures Epidural Insertion Patient Location: OB Start Time: 06:45 Stop Time: 07:15 Start Date: 11/05/23 Stop Date: 11/05/23 Reason for Block: procedure for pain Patient Position: sitting Performed By: Luis Manuel Barton Preanesthetic Checklist: IV checked, risks and benefits discussed, monitors and equipment checked, pre-op evaluation, timeout performed and anesthesia consent Prep: chlorhexidine gluconate Monitoring: blood pressure monitoring, continuous pulse oximetry and heart rate Approach: midline Vertebral Space: lumbar (1-5) Epidural Technique: VARINDER saline Needle Type: Tuohy needle Injection Technique: continuous catheter Needle gauge: 17 Needle Length (cm): 10 cm Needle Insertion Depth (cm): 6 Catheter Gauge: 19 Catheter Type: multi-orifice Catheter at skin depth (cm): 13 Test Dose Result: negative and lidocaine 1.5% with epinephrine 1 to 200,000
--- NOTE | 2023-11-05 08:17 | PM.OBPNL ---
Subjective Time Seen by Provider: 07:50 Date Seen: 11/05/23 Narrative: pt requested and received epidural. She is comfortable now. Objective Vital Signs: Last Vital Signs Temp 97.9 F 11/05/23 05:56 Pulse 83 11/05/23 08:15 Resp 14 11/05/23 05:56 BP 118/79 11/05/23 08:15 Pulse Ox 96 11/05/23 08:17 Pelvic Exam Dilation (cm): 5 Effacement (%): 80 Station: -1 Comments: Forebag noted on exam Contractions Monitor mode: External Contraction pattern: Regular Pitocin Rate (mU/min): 2 Assessment Assessment: induction ongoing Station: -1 Heart Rate Baseline: 140 Tumor Registrar Variability: Moderate (6-25) Monitor Accelerations: Present Monitor Decelerations: None Plan Plan: PPROM 5pm last night. Known GBS, on abx 4+ hours, will continue abx Forebag noted on exam, pt consented for AROM. AROM this morning around 8am with blood tinged fluid. Continue pitocin, increase as needed. All ?'s answered
[2023-11-05] MEDS: miSOPROStoL 800 MCG/4 TABLET PR (09:27)
--- NOTE | 2023-11-05 09:57 | W.PM.VAGD1_ITS ---
Procedure Delivery date: 11/05/23 Procedure Done: Global Procedure Details: The patient is a 37 year-old admitted on 11/04/23 at 36 Weeks, 6 Days gestation for PPROM, occuring at 1700 on 11/04/23.? She presented at 2123. Cervical exam was not performed on admission as was not showing signs of labor and known GBS positive with +amniosure. Antibiotics were started and after 4 hours completed she was checked and was 4.5 cm/60 % effaced/-1 station with membranes ruptured in vertex presentation.? pt reported feeling intermittent 'menstrual cramping'.? heart rate on admit demonstrated baseline 130 bpm with moderate variability, + accelerations, - decelerations; a category 1 tracing. Contractions waxed and waned. Pitocin was started around 0535am. She requested and received epidural. Forebag was noted and AROM'd at 7:59am with bloody amniotic fluid. At AROM she was 5cm and labor progressed quickly after AROM. Of note, there was a pump error noted with administering antibiotics per RN's. The 730am dose of antibiotics was hooked up incorrectly along pump and noted around 9am to be circulating unknown amount to pt and unknown amount back up into bag. New bag antibiotics was started. Pt had adequate antibiotics prior to this 0730 am, unclear amount received 0730-9am and new bag started then. RN reported this error. ? Labor Analgesia:? Epidural ? Pitocin:? Yes ? Labor onset:? At AROM 0759am on 11/05/23 ? Complete:? 0921 on 11/05/23 ? Pushing:? 09 heart tones during second stage were 130, decreased after initial pushing to 90bpm but recovered quickly on own. Pt did 2 sets of 3 pushes and at end of second baby was delivered, there were some small blood clots that delivered at same time as baby. ? At 0924 a viable female infant delivered in vertex presentation over intact perineum via spontaneous vaginal delivery.?Tight nuchal cord delivered through and removed. Dad helped place infant was placed on maternal abdomen.? Cord was clamped and cut after a 60+ second delay.? Nose and mouth were bulb suctioned.? Infant weight pending.? 8 at 1 minute and 9 at 5 minutes.? Shoulder dystocia: no.? Nuchal cord: yes x 1. ? Active management of placenta performed including pitocin at delivery. There was increased bleeding noted after delivery baby before placenta so cytotec placed rectally 800mcg at 0927. Placenta delivered spontaneously and complete at 0930 with a 3 vessel cord. Placenta appeared intact. ? Mother and infant were stable after delivery. ? Lacerations:? 2nd degree midline repaired by standard technique with 3-0 vicryl. Superficial abrasion along periurethral area not needing repair. Was hemostatic ? Blood loss: 200 mL. Blood loss measurement type: EBL ? Sponge and needles counts are correct. Events: Premature Rupture of Membrane Intrapartal Events: Labor Induction Delivery augmentation: rupture of membranes and pitocin Delivery monitor: external FHT Route of delivery: Laceration description: Perineal - 2nd Degree Delivery repair: Vicryl Estimated blood loss (mL): 200 Anesthesia type: Epidural [place] Gender: Female presentation: vertex Placental Delivery Description: Spontaneous Cord Description: 3 Vessels and Nuchal Cord
[2023-11-05] MEDS: SODIUM CHLORIDE 0.9 % (FLUSH) 10 ML SYRINGE IVF (11:22)
[2023-11-05] MEDS: IBUPROFEN 600 MG TABLET PO ×2 (13:31→20:59)
[2023-11-05] MEDS: ACETAMINOPHEN 500 MG TABLET 1000 MG PO (16:51)
[2023-11-06] MEDS: ACETAMINOPHEN 500 MG TABLET 1000 MG PO ×3 (00:35→16:24)
[2023-11-06 00:59] VITALS: BP 118/81; PULSE 61; RESP 16; TEMP 36.9; O2SAT 94
[2023-11-06] MEDS: IBUPROFEN 600 MG TABLET PO ×3 (03:42→20:51)
[2023-11-06 04:22] VITALS: BP 125/82; PULSE 70; RESP 16; TEMP 36.6; O2SAT 96
[2023-11-06 06:27] LABS: Hemoglobin* 10.8 gm/dL (12.0-16.0)
--- NOTE | 2023-11-06 08:01 | PM.OBDSVD1 ---
DS: Providers Provider Date Seen: 11/06/23 Date of admission: 11/04/23 22:19 Primary care physician: Aziza Sol DO Admitting Clinician: Aziza Sol DO Attending Physician on discharge: Aziza Sol DO DS: Diagnosis Discharge Diagnosis (1) Vaginal delivery: Status: Acute Exam Const: Vital Signs, click to edit/add: Vital Signs - 24 hr 11/05/23 08:02 11/05/23 08:06 11/05/23 08:07 Temperature Pulse Rate 78 Pulse Rate [Pulse Oximeter] Respiratory Rate Blood Pressure 115/72 Blood Pressure [Le ft Arm] Pulse Oximetry 98 96 Oxygen Delivery Me thod 11/05/23 08:10 11/05/23 08:12 11/05/23 08:15 Temperature Pulse Rate 83 83 Pulse Rate [Pulse Oximeter] Respiratory Rate Blood Pressure 116/78 118/79 Blood Pressure [Le ft Arm] Pulse Oximetry 97 Oxygen Delivery Me thod 11/05/23 08:17 11/05/23 08:20 11/05/23 08:22 Temperature Pulse Rate 82 Pulse Rate [Pulse Oximeter] Respiratory Rate Blood Pressure 115/76 Blood Pressure [Le ft Arm] Pulse Oximetry 96 97 Oxygen Delivery Me thod 11/05/23 08:25 11/05/23 08:27 11/05/23 08:27 Temperature 98.4 F Pulse Rate 88 Pulse Rate [Pulse Oximeter] Respiratory Rate Blood Pressure 117/76 Blood Pressure [Le ft Arm] Pulse Oximetry 97 Oxygen Delivery Me thod 11/05/23 08:32 11/05/23 08:37 11/05/23 08:40 Temperature Pulse Rate 77 Pulse Rate [Pulse Oximeter] Respiratory Rate Blood Pressure 117/69 Blood Pressure [Le ft Arm] Pulse Oximetry 97 97 Oxygen Delivery Me thod 11/05/23 08:42 11/05/23 08:47 11/05/23 08:52 Temperature Pulse Rate Pulse Rate [Pulse Oximeter] Respiratory Rate Blood Pressure Blood Pressure [Le ft Arm] Pulse Oximetry 96 96 95 Oxygen Delivery Me thod 11/05/23 08:55 11/05/23 08:57 11/05/23 09:02 Temperature Pulse Rate 78 Pulse Rate [Pulse Oximeter] Respiratory Rate Blood Pressure 113/68 Blood Pressure [Le ft Arm] Pulse Oximetry 96 97 Oxygen Delivery Me thod 11/05/23 09:11 11/05/23 09:25 11/05/23 09:30 Temperature Pulse Rate 89 96 79 Pulse Rate [Pulse Oximeter] Respiratory Rate Blood Pressure 122/72 130/72 127/76 Blood Pressure [Le ft Arm] Pulse Oximetry Oxygen Delivery Me thod 11/05/23 09:30 11/05/23 09:30 11/05/23 09:40 Temperature 98.1 F Pulse Rate 80 Pulse Rate [Pulse Oximeter] Respiratory Rate 16 Blood Pressure 118/75 Blood Pressure [Le ft Arm] Pulse Oximetry Oxygen Delivery Me thod 11/05/23 09:40 11/05/23 09:55 11/05/23 09:55 Temperature 98.1 F Pulse Rate 76 Pulse Rate [Pulse Oximeter] Respiratory Rate 16 16 Blood Pressure 113/74 Blood Pressure [Le ft Arm] Pulse Oximetry 97 97 Oxygen Delivery Me thod 11/05/23 10:25 11/05/23 10:25 11/05/23 10:40 Temperature Pulse Rate 77 67 Pulse Rate [Pulse Oximeter] Respiratory Rate 16 Blood Pressure 112/70 104/65 Blood Pressure [Le ft Arm] Pulse Oximetry 97 Oxygen Delivery Me thod 11/05/23 10:40 11/05/23 10:55 11/05/23 10:55 Temperature Pulse Rate 62 Pulse Rate [Pulse Oximeter] Respiratory Rate 16 16 Blood Pressure 123/66 Blood Pressure [Le ft Arm] Pulse Oximetry 97 97 Oxygen Delivery Me thod 11/05/23 11:10 11/05/23 11:10 11/05/23 11:25 Temperature Pulse Rate 63 72 Pulse Rate [Pulse Oximeter] Respiratory Rate 16 Blood Pressure 124/71 124/75 Blood Pressure [Le ft Arm] Pulse Oximetry 97 Oxygen Delivery Me thod 11/05/23 11:25 11/05/23 11:40 11/05/23 11:55 Temperature 98.1 F Pulse Rate 83 85 Pulse Rate [Pulse Oximeter] Respiratory Rate 16 Blood Pressure 128/78 116/70 Blood Pressure [Le ft Arm] Pulse Oximetry 97 Oxygen Delivery Me thod 11/05/23 12:10 11/05/23 15:28 11/05/23 20:30 Temperature 98.7 F 98.6 F Pulse Rate 90 Pulse Rate [Pulse Oximeter] 76 77 Respiratory Rate 18 18 Blood Pressure 102/62 Blood Pressure [Le ft Arm] 112/69 120/77 Pulse Oximetry 95 95 Oxygen Delivery Me thod Room Air Room Air 11/06/23 00:59 11/06/23 04:22 Temperature 98.4 F 97.8 F Pulse Rate Pulse Rate [Pulse Oximeter] 61 70 Respiratory Rate 16 16 Blood Pressure Blood Pressure [Le ft Arm] 118/81 125/82 Pulse Oximetry 94 96 Oxygen Delivery Me thod Room Air Room Air Documenting provider has reviewed patient's vital signs: yes Common normals: no apparent distress HENMT: Common normals: normocephalic Head and scalp: normocephalic Eye: Common normals: PERRL and EOMs intact bilaterally Pupil: PERRL Resp: Common normals: normal respiratory effort and clear to auscultation bilaterally Effort & inspection: able to speak in complete sentences Auscultation: clear to auscultation bilaterally Cardio: Common normals: regular rate and regular rhythm Rate: regular rate Rhythm: regular rhythm GI: Common normals: soft to palpation and non-tender Palpation: soft Other: Uterus firm at umbilicus. Psych: Common normals: thought process normal, cooperative and affect normal Thought process: normal thought process OB - DS: Summary Hospital Course Hospital Course: The patient is a 37 year old G 2 P 2 at 37 weeks gestation that was admitted to the Center on 11/04/23 for PPROM. She had an uncomplicated vaginal delivery. She delivered a viable female infant. She is breast feeding. Infant is not latching well, so doing supplementation with donor milk as well. the patient has done well. She has had a BM. No concerns today. Peripartum Data delivery method: Vaginal complications: none Gender: Female Infant Discharge Plan: Home Time Spent with Patient Time attestation: Total time spent providing and/or coordinating discharge services: Discharge Plan Discharge Disposition: Home, Self-Care Date of Admission: 11/04/23 22:19 Attending Provider on Discharge: Sonal Gibson Primary Care Provider: Aziza Sol Condition: Improved Anticipated Discharge Date/Time: 11/06/23 08:04 Discharge Medications: Continued PNV #[id number] acid-[id number] 30 mg iron-10 mg iron-1 mg capsule 1 cap PO DAILY Discharge Orders: Discharge Order (Routine); Ordered 11/06/23 Ordered By: Sonal Gibson Patient Education: OB Vaginal/Breast Feeding Activity Level: No Restrictions Activity Detail: nothing per vagina x6 weeks Follow Up Appointments: Aziza Sol DO [Primary Care Provider] - Forms: MyHealth Info Instructions
[2023-11-06 08:30] VITALS: BP 113/72; PULSE 69; RESP 16; TEMP 36.7; O2SAT 96
[2023-11-06] MEDS: DOCUSATE SODIUM 100 MG CAPSULE PO (08:53)
[2023-11-06 12:18] VITALS: BP 118/71; PULSE 73; RESP 16; TEMP 36.9; O2SAT 97
--- NOTE | 2023-11-06 13:30 | PM.ANPOST ---
Post Anesthesia Note Post Anesthesia Note Patient seen: Inpatient Respiratory Status: adequate Cardiovascular Status: adequate Mental Status: baseline Pain: adequate Temp: baseline Anesthetic awareness: N/A Complications: none Follow care: none
[2023-11-06 16:24] VITALS: TEMP 36.6
[2023-11-06 16:47] VITALS: BP 123/83; PULSE 67; RESP 16; TEMP 36.6; O2SAT 96
[2023-11-07 00:58] LABS: Rapid Plasma Reagin (RPR) Non Reactive (Non Reactive)
[2023-11-07 01:00] VITALS: BP 118/78; PULSE 84; RESP 18; TEMP 36.6; O2SAT 96
[2023-11-07] MEDS: ACETAMINOPHEN 500 MG TABLET 1000 MG PO ×2 (01:41→07:56)
[2023-11-07] MEDS: IBUPROFEN 600 MG TABLET PO (05:26)
[2023-11-07 07:46] VITALS: BP 127/80; RESP 16; TEMP 36.8
--- NOTE | 2023-11-07 07:47 | PM.OBDSVD1 ---
DS: Providers Provider Time Seen by Provider: 07:47 Date Seen: 11/07/23 Date of admission: 11/04/23 22:19 Primary care physician: Aziza Sol DO Admitting Clinician: Aziza Sol DO Attending Physician on discharge: Aziza Sol DO Date of Discharge: 11/07/23 DS: Diagnosis Discharge Diagnosis (1) premature rupture of membranes: Status: Acute Problem details: SROM 1700 on 11/04/23. Delivered at 37wks (2) Vaginal delivery: Status: Acute Exam Const: Vital Signs, click to edit/add: Vital Signs - 24 hr 11/06/23 08:30 11/06/23 12:18 11/06/23 16:24 Temperature 98.1 F 98.4 F 98 F Pulse Rate [Pulse Oximeter] 69 73 Respiratory Rate 16 16 Blood Pressure [Le ft Arm] 113/72 118/71 Pulse Oximetry 96 97 Oxygen Delivery Me thod Room Air Room Air 11/06/23 16:47 11/07/23 01:00 Temperature 98 F 97.8 F Pulse Rate [Pulse Oximeter] 67 84 Respiratory Rate 16 18 Blood Pressure [Le ft Arm] 123/83 118/78 Pulse Oximetry 96 96 Oxygen Delivery Me thod Room Air Room Air Documenting provider has reviewed patient's vital signs: yes Common normals: no apparent distress General appearance: cooperative and comfortable : Uterus: U/U and firm OB - DS: Summary Hospital Course Hospital Course: The patient is a 37 year old G 2 P 1 at 36 6/7 weeks gestation that was admitted to the Center on 11/04/23 for PPROM. See delivery note for details. She had an uncomplicated vaginal delivery. She delivered a viable female . She is breast feeding and using SNS with supplement. Pt met with and feels like has good plan. latching well. the patient has done well. Lochia mild. AMbulating, tolrating orals, +S/V Peripartum Data Infant delivery method: Vaginal Laceration description: Perineal - 2nd Degree Episiotomy description: None complications: none [place] Infant Gender: Female Infant Discharge Plan: Home Time Spent with Patient Time attestation: Total time spent providing and/or coordinating discharge services: Discharge Plan Discharge Disposition: Home, Self-Care Date of Admission: 11/04/23 22:19 Attending Provider on Discharge: Aziza Sol Primary Care Provider: Aziza Sol Condition: Improved Anticipated Discharge Date/Time: 11/06/23 08:04 Discharge Medications: New acetaminophen 500 mg Tablet 1,000 mg PO Q6H PRNQty: 100 0RF docusate sodium 100 mg Capsule 100 mg PO DAILY Qty: 30 0RF ibuprofen 600 mg Tablet 600 mg PO Q6H PRNQty: 60 0RF Continued PNV #[id number] acid-omega3 30 mg iron-10 mg iron-1 mg capsule 1 cap PO DAILY Discharge Orders: Discharge Order (Routine); Ordered 11/06/23 Ordered By: Sonal Gibson Patient Education: OB Vaginal/Breast Feeding Activity Level: No Restrictions Activity Detail: nothing per vagina x6 weeks Follow Up Appointments: Aziza Sol, [Primary Care Provider] - (6 week visit) Forms: MyHealth Info Instructions
[2023-11-07] MEDS: DOCUSATE SODIUM 100 MG CAPSULE PO (07:56)
== END 2023-11-07 13:28 | disposition home or self-care (01) | DRG 560 ==
LOC: OB OUT 22:19 → OB 22:19
PROVIDERS: Family Medicine; Admitting Provider Family Medicine; PCP Family Medicine; Visit Provider Family Medicine
DX: O42.013 Preterm premature rupture of membranes, onset of labor within 24 hours of rupture, third trimester (principal); Z3A.36 36 weeks gestation of pregnancy; O99.824 Streptococcus B carrier state complicating childbirth; O70.1 Second degree perineal laceration during delivery; Z37.0 Single live birth
CPT/HCPCS: 01967; 36415; 84112; 85018; 85025; 86592; 86850; 86900; 86901; 88305; 88307; A9270; J0290; J2795; J7120